=== PATIENT | male | born 1935 | race Caucasian/White ===

== ENCOUNTER 2017-09-20 02:54 | Inpatient (IN) | payer MEDICARE, OTHER ==
[2017-09-20] MEDS ORDERED: Acetaminophen 500 MG TAB ONE (03:18)
[2017-09-20] MEDS ORDERED: Azithromycin 500 MG VIAL ONE (03:32)
[2017-09-20 03:54] LABS: #Eosinphils 0.1 thou/uL (0.0-0.7); #Lymphocytes 0.6 thou/uL (1.20-3.40); #Monocytes 0.6 thou/uL (0.11-0.59); #Neutrophils 6.3 thou/uL (1.40-6.50); %Basophils 0.3 % (0.0-1.0); %Eosinophils 0.7 % (0.0-10.0); %Monocytes 7.4 % (0.0-10.0); %Neutrophils 83.6 % (42.0-75.0); Hemoglobin 13.4 g/dL (14.0-18.0); Mean Corpuscular HGB CONC 33.3 g/dL (32.0-36.0); Mean Corpuscular Hemoglobin 31.7 pg (27.0-31.0); Mean Corpuscular Volume 95.1 fl (80.0-94.0); Mean Platelet Volume 6.2 fL (7.4-10.4); Platelet Count 165 thou/uL (130-400); RBC Distribution Width 12.5 % (11.5-14.5); Red Blood Cell (RBC) Count 4.24 mill/uL (4.70-6.10); White Blood Cell (WBC) Count 7.6 thou/uL (4.8-10.8)
[2017-09-20 03:59] LABS: ALT (SGPT) 17 U/L (8-55); AST (SGOT) 22 U/L (5-34); Albumin 3.9 g/dL (3.4-4.8); Alkaline Phosphatase 84 U/L (40-150); Anion Gap 11 mmol/L (10-20); BUN (Urea Nitrogen) 22 mg/dL (8.4-25.7); Bilirubin, Total 0.5 mg/dL (0.2-1.2); Calc. Creatinine Clearance 0 mL/min (70-130); Calcium 8.8 mg/dL (7.8-10.44); Carbon Dioxide 20 mmol/L (23-31); Chloride 108 mmol/L (98-107); Estimated GFR-MDRD 61; Globulin 3.3 g/dL (2.4-3.5); Glucose 127 mg/dL (83-110); Potassium 3.8 mmol/L (3.5-5.1); Protein, Total 7.2 g/dL (5.8-8.1); Sodium 135 mmol/L (136-145)
[2017-09-20] MEDS ORDERED: Sodium Chloride 0.9% 1,000 ML IV SCH (04:30)
[2017-09-20] MEDS ORDERED: Ondansetron ODT 4 MG TAB SL PRN (04:30)
[2017-09-20] MEDS ORDERED: Ondansetron HCl/PF 4 MG/2 ML Vial IVP PRN (04:30)
[2017-09-20] MEDS ORDERED: Acetaminophen 325 MG TAB PO PRN (04:30)
[2017-09-20 04:46] LABS: Bilirubin Negative (Negative); Blood, Urine Trace (Negative); Clarity CLEAR (Clear); Glucose, Urine (Dipstick) Negative (Negative); Leukocyte Negative (Negative); Nitrite Negative (Negative); Protein, Urine (Dipstick) Trace mg/dL (Neg-Trace); Specific Gravity, Urine 1.018 (1.002-1.036); pH, Urine 7.5 (5.0-9.0)
[2017-09-20 04:49] LABS: Bacteria/HPF 1+ HPF (None Seen); Hyaline Casts/LPF 0-3 HYALINE CAST LPF (0-3 Hyaline); Pathc Cast-AUWi Flag 0.13 (0-2.49); Squamous Epithelial 0-3 HPF (0-3); WBC/HPF 0-3 HPF (0-3)
[2017-09-20 07:34] VITALS: BMI 23.3
--- NOTE | 2017-09-20 08:14 | RAD ---
SINGLE VIEW OF THE CHEST: Comparison: 09-06-16 History: Dyspnea. FINDINGS: Single view of the chest shows an enlarged but stable cardiomediastinal silhouette. Increased interst itial markings are present. There is no evidence of consolidation, mass, pleural effusion. Degenerati ve changes are seen in the spine. IMPRESSION: No evidence of acute cardiopulmonary disease. POS: [facility]
[2017-09-20] MEDS ORDERED: Aspirin/APAP/Caffeine Tab (Excedrin Migraine) PO PRN (09:24)
--- NOTE | 2017-09-20 10:21 | HP ---
CHIEF COMPLAINT: Cough and fever. HISTORY OF PRESENT ILLNESS: This is an 82-year-old male, patient of Dr. Geronimo Felton, who was brought to the emergency room by his daughter due to unresolving upper respiratory symptoms that started becoming worse cough and possible fever. In the emergency room, he was found to have a righ t lower lobe pneumonia. He said his upper respiratory symptoms for about a week or more, but his cou gh just became more persistent and daughter was more concerned. PAST MEDICAL HISTORY: Mild dementia with some short-term memory issues, history of common migraines, and also history of multi-joint osteoarthritis. He has got BPH with lower urinary tract symptoms. He has got urge incontinence, hyperlipidemia, GERD, and glaucoma. PAST SURGICAL HISTORY: He had a tonsillectomy and adenoidectomy as a child, and appendectomy and her niorrhaphy. He also had cataract surgery and retinal surgery. ALLERGIES: CODEINE, PEANUTS, CHOCOLATE, POTATOES, AND DAIRY. CURRENT MEDICATIONS: He has Azopt eye drops 3 drops daily, travoprost drops 1 drop at night, alfuzos in 10 mg daily, Lipitor 40 mg daily, Namenda 10 mg b.i.d., vitamin D3 tablet 1000 mg daily, finasteri de 5 mg daily, Topamax 100 mg daily, gabapentin 300 mg at bedtime, propranolol 120 mg daily, amitript yline 100 mg daily, also uses Imitrex p.r.n. for migraines. FAMILY HISTORY: His father of an MVA at age 57. His mother at age 56, but had an aortic v alve repair and also had had a stroke previously and had a history of migraines. He has a sister wit h an aneurysm that she from. She had diabetes as well. One of his children has a clotti ng disorder of some kind, he was not spelled up specifically. He does not know the specifics. SOCIAL HISTORY: He is , has two daughters and 1 son. He quit smoking more than 30 years ago, and he only smoked about half a pack a day for about 10 years. He has occasional social alcohol use . 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 No illegal drug use or illicit drug use. REVIEW OF SYSTEMS: Positive for headache and low grade temp, some upper respiratory congestion, but no troubles chewing or swallowing. No changes to vision issues. He has a mild nonproductive cough, but no chest pain, no shortness of breath. Denies any nausea, vomiting, or hematemesis. No hemoptys is. Denies any diarrhea or constipation. No changes in bowel or bladder habits. No dysuria or ivan tochezia or hematuria. Denies any paresis or paresthesias. No suicidal or homicidal ideations. No auditory or visual hallucinations. PHYSICAL EXAMINATION: GENERAL: He is currently sitting up and comfortable, looks a little dazed to me that could be some o f his confusion and change in the environment. He is getting ready to eat breakfast, his daughters h elping him. VITAL SIGNS: Temperature 98.7, pulse is 65, respirations 16, sats 94% on room air, blood pressure 14 0/58. HEENT: Normocephalic and atraumatic cranium. Pupils are equal, round, and reactive to light and acc ommodation. Extraocular movements are intact. Both eyes, the conjunctivae were injected consistent with his glaucoma. Denies any ophthalmoplegia. No dysphagia. NECK: No JVD, no bruits, no lymphadenopathy. LUNGS: Show right lower lobe coarse rale, mild wheezes throughout the right side. Left side sounds fairly clear. HEART: S1, S2, with no rubs, murmurs, or gallops. ABDOMEN: Soft, nontender, nondistended. No hepatosplenomegaly. Bowel sounds are hypoactive. GENITOURINARY: Deferred. EXTREMITIES: Good palpable pulses x4. No cyanosis, clubbing, or edema. NEUROLOGIC: He is grossly intact. He is alert and oriented x3. He has fairly poor short-term memor y. Cranial nerves II-XII are equal and symmetrical. There are no motor or sensory deficits. LABORATORY AND X-RAY FINDINGS: White count 7.6, H&H are 13.4 and 40.3 respectively with 165,000 plat elets. Neutrophils at 83 and lymphocytes at 8. His sodium is 135, potassium 3.8, chloride 108, bica rbonate is 20, BUN is 22, creatinine 1.14 with glucose of 127. GFR 61, AST is 22, ALT 17. Chest x-r ay shows hazy mild infiltrate in the right lower lobe. ASSESSMENT AND PLAN: Pneumonia, lobar early. He has gotten 1 dose of Rocephin and Zithromax in the emergency room. We will continue that. We will also add some DuoNebs and maintain his home medicine s.
[2017-09-20] MEDS: Sodium Chloride 0.9% 1,000 ML IV SCH ×2 (10:23→18:40)
[2017-09-20] MEDS ORDERED: Ondansetron ODT 4 MG TAB PO PRN (10:28)
[2017-09-20] MEDS: Alfuzosin 10 MG TABDR...ER PO SCH (14:52)
[2017-09-20] MEDS: Aspirin/APAP/Caffeine Tab (Excedrin Migraine) PO PRN (16:00)
[2017-09-20] MEDS: Brinzolamide 1% Ophth Soln 10 ml Bottle EA EYE SCH ×2 (16:02→20:18)
[2017-09-20] MEDS: Atorvastatin Calcium 40 MG TAB PO SCH (20:16)
[2017-09-20] MEDS: Gabapentin 300 MG CAP PO SCH (20:16)
[2017-09-20] MEDS: Finasteride 5 MG TAB PO SCH (20:17)
[2017-09-20] MEDS: TRAVATAN 0.004% EA EYE SCH (20:17)
[2017-09-20] MEDS ORDERED: [UNRECOGNIZED DRUG - REMARK] FS SCH (21:00)
[2017-09-20] MEDS ORDERED: Amitriptyline HCl 100 MG TAB PO SCH (22:20)
[2017-09-21] MEDS: cefTRIAXone\\ROCEPHIN 1 GM, Syringe 0.4 ML in Sterile Water 9.6 ML SLOW IVP SCH (03:03)
[2017-09-21] MEDS: Azithromycin 500 MG in Sodium Chloride 0.9% 250 ML 250 ML IVPB SCH (03:04)
[2017-09-21 05:17] LABS: #Eosinphils 0.1 thou/uL (0.0-0.7); #Lymphocytes 2.2 thou/uL (1.20-3.40); #Monocytes 1.2 thou/uL (0.11-0.59); #Neutrophils 7.1 thou/uL (1.40-6.50); %Eosinophils 0.6 % (0.0-10.0); %Lymphocytes 21.1 % (21.0-51.0); %Monocytes 10.9 % (0.0-10.0); %Neutrophils 67.4 % (42.0-75.0); Hemoglobin 11.1 g/dL (14.0-18.0); Mean Corpuscular HGB CONC 32.5 g/dL (32.0-36.0); Mean Corpuscular Hemoglobin 31.1 pg (27.0-31.0); Mean Corpuscular Volume 95.6 fl (80.0-94.0); Mean Platelet Volume 6.7 fL (7.4-10.4); Platelet Count 147 thou/uL (130-400); RBC Distribution Width 12.6 % (11.5-14.5); Red Blood Cell (RBC) Count 3.55 mill/uL (4.70-6.10); White Blood Cell (WBC) Count 10.6 thou/uL (4.8-10.8)
[2017-09-21] MEDS: Sodium Chloride 0.9% 1,000 ML IV SCH ×2 (05:41→14:40)
[2017-09-21] MEDS: Brinzolamide 1% Ophth Soln 10 ml Bottle EA EYE SCH ×3 (08:30→20:15)
[2017-09-21] MEDS: Topiramate 100 MG TAB PO SCH (08:32)
[2017-09-21] MEDS: Propranolol HCl LA 60 MG CAP PO SCH (08:33)
[2017-09-21] MEDS: Alfuzosin 10 MG TABDR...ER PO SCH (08:35)
[2017-09-21] MEDS ORDERED: Amitriptyline HCl 100 MG TAB PO SCH ×2 (09:00→21:00)
--- NOTE | 2017-09-21 10:31 | RAD ---
CHEST TWO VIEWS: History: Pneumonia. Comparison: Chest one view, prior day. FINDINGS: Seen best on the lateral radiograph there is a posterior left lower lobe airspace opacity. This is so mewhat faint. No pneumothorax. No effusion. Cardiac silhouette and mediastinal contours are within no rmal limits. IMPRESSION: Faint left lower lobe airspace opacity seen best on lateral radiograph. POS: [facility]
[2017-09-21] MEDS: TRAVATAN 0.004% EA EYE SCH (20:14)
[2017-09-21] MEDS: Finasteride 5 MG TAB PO SCH (20:15)
[2017-09-21] MEDS: Atorvastatin Calcium 40 MG TAB PO SCH (20:15)
[2017-09-21] MEDS: Gabapentin 300 MG CAP PO SCH (20:15)
[2017-09-21] MEDS ORDERED: Amitriptyline HCl 25 MG TAB PO SCH (21:00)
[2017-09-22] MEDS: cefTRIAXone\\ROCEPHIN 1 GM, Syringe 0.4 ML in Sterile Water 9.6 ML SLOW IVP SCH (02:44)
[2017-09-22] MEDS: Azithromycin 500 MG in Sodium Chloride 0.9% 250 ML 250 ML IVPB SCH (02:44)
[2017-09-22] MEDS: Sodium Chloride 0.9% 1,000 ML IV SCH ×2 (02:46→12:07)
[2017-09-22] MEDS: Aspirin/APAP/Caffeine Tab (Excedrin Migraine) PO PRN (08:20)
[2017-09-22] MEDS: Topiramate 100 MG TAB PO SCH (08:20)
[2017-09-22] MEDS: Brinzolamide 1% Ophth Soln 10 ml Bottle EA EYE SCH (08:21)
[2017-09-22] MEDS: Propranolol HCl LA 60 MG CAP PO SCH (08:21)
[2017-09-22] MEDS: Alfuzosin 10 MG TABDR...ER PO SCH (08:21)
[2017-09-22 09:13] VITALS: BP 143/72; TEMP 97.3
--- NOTE | 2017-09-22 18:00 | DIS ---
DATE OF ADMISSION: 09/20/2017 DATE OF DISCHARGE: 09/22/2017 ADMITTING DIAGNOSIS: Right lower lobe pneumonia. DISCHARGE DIAGNOSIS: Right lower lobe pneumonia. HOSPITAL COURSE: The patient is an 82-year-old male, patient of Dr. Geronimo Felton's, who c philipp in with coughing and fever, found to have pneumonia and was admitted for IV antibiotics and nebul izer treatments. Hospital course is essentially uneventful. On day of discharge, he has been afebri le for more than 36 hours. His chest x-ray showed slight resolution of the infiltrate. He is feelin g much better and is ready to go home. Plan is to discharge home on cefdinir 300 mg twice a day for a week and Zithromax 250 mg daily for a week and he will follow up with Dr. Felton sometime early in t he next week. He will call and make that appointment. He will resume all his home meds. His daught er is in the room with him. They have no further questions at this time.
== END 2017-09-22 12:46 | disposition home or self-care (01) | DRG 195 ==
LOC: ERS 02:54 → T4-B 06:44
PROVIDERS: ADMIT Family Medicine; ATTEND Family Medicine
DX: J18.9 Pneumonia, unspecified organism (principal); E78.5 Hyperlipidemia, unspecified; K21.9 Gastro-esophageal reflux disease without esophagitis; H40.9 Unspecified glaucoma; N40.1 Benign prostatic hyperplasia with lower urinary tract symptoms; M19.90 Unspecified osteoarthritis, unspecified site; N39.41 Urge incontinence; Z87.891 Personal history of nicotine dependence
CPT/HCPCS: 36415; 71010; 71020; 80053; 81003; 81015; 83605; 85025; 87804; 94640; 96365; 96367; A4216; J0456; J0696; J7050; J7620

== ENCOUNTER 2018-02-03 10:30 | Inpatient (IN) | payer MEDICARE, OTHER ==
[2018-02-07] MEDS ORDERED: CEFAZOLIN/Water 2 GM/20 ML SYRINGE ONE (06:26)
[2018-02-07] MEDS ORDERED: Midazolam HCl 2 mg/2 ml Vial ONE (06:27)
[2018-02-07] MEDS ORDERED: Lidocaine 1% (PF) 30 ML VIAL ONE (06:27)
[2018-02-07] MEDS ORDERED: Fentanyl 100 MCG/2 ML VIAL ONE ×2 (06:27→10:26)
[2018-02-07] MEDS ORDERED: Promethazine HCl 25 MG/ML VIAL ONE (06:42)
[2018-02-07] MEDS ORDERED: hydrALAZINE 20 MG/ML VIAL ONE (06:43)
[2018-02-07] MEDS ORDERED: Ropivacaine 0.2% 550 ML 550 ML NERVE BLCK SCH (06:51)
[2018-02-07] MEDS ORDERED: Ondansetron HCl/PF 4 MG/2 ML Vial IVP PRN ×2 (06:51→09:33)
[2018-02-07] MEDS ORDERED: traMADol HCl 50 MG TAB PO PRN ×2 (06:51)
[2018-02-07] MEDS ORDERED: Zolpidem Tartrate 5 MG TAB PO PRN (06:51)
[2018-02-07] MEDS ORDERED: Promethazine HCl 25 MG/ML VIAL IM PRN ×2 (06:51→09:33)
[2018-02-07] MEDS ORDERED: Fentanyl 100 MCG/2 ML VIAL IV PRN (06:52)
[2018-02-07] MEDS ORDERED: HYDROcodone/Acetaminophen 7.5/325 mg Tablet PO PRN ×2 (06:54)
[2018-02-07] MEDS ORDERED: Promethazine HCl 25 MG/ML VIAL SLOW IVP PRN (09:33)
[2018-02-07] MEDS ORDERED: Ketorolac Tromethamine 30 MG/ML VIAL ONE ×2 (10:02→11:09)
--- NOTE | 2018-02-07 11:09 | OP ---
DATE OF PROCEDURE: 02/07/2018 PREOPERATIVE DIAGNOSES: 1. Left shoulder osteoarthritis. 2. Biceps tendinosis. POSTOPERATIVE DIAGNOSES: 1. Left shoulder osteoarthritis. 2. Biceps tendinosis. PROCEDURE PERFORMED: 1. Left reverse total shoulder arthroplasty. 2. Biceps tenodesis. STAFF: Salvador Miller M.D. DIRECTOR STARS: Kary Worrell PA-C ANESTHESIA: Zane. The patient received a general intubation with interscalene block. ESTIMATED BLOOD LOSS: 200 mL. TOURNIQUET TIME: None. IMPLANTS: A Tornier 25 mm baseplate, a 25 mm x 36 mm centered glenosphere, a 7B Scend Flex stem with a high offset tray and a 36 x 6 mm poly, 2 locking screws and 2 nonlocking screws, one locking screw inserted in the baseplate. ANTIBIOTICS: She also received Ancef 2 grams, vancomycin 1 gram, TXA 1 gram. COMPLICATIONS: None. HISTORY OF PRESENT ILLNESS: Mr. Reece is a pleasant 82-year-old male who presented to my service marvin ral years ago having left shoulder pain. The patient has been followed with injections and conservat emerson management. I discussed with the patient the risks and benefits of a left reverse shoulder arthr oplasty versus total shoulder arthroplasty with biceps tenodesis. I discussed given the patient's ag e, as well as my concern for potential function of his rotator cuff for potential falls that I would like to elect for reverse shoulder arthroplasty for management of the patient's shoulder osteoarthrit is. I discussed with the patient the risks and benefits of the surgery to include pain, scar, bleedi ng, infection, damage to vital structures, decreased range of motion or strength, nerve injury, isabella nued pain, damage to vital structures, loss of life or limb. The patient understood these risks and benefits and elected to proceed. PROCEDURE NOTE: Time-out was performed designating the patient's left upper extremity as the operati ve site based on site, consents and markings. After completion of timeout, the patient was placed in a beach chair position. His left upper extremity was prepped and draped in sterile fashion. Deltop ectoral interval was made down, found the patient's deltoid and found the cephalic vein, retracted it laterally. We then opened the interval coming down onto the conjoint, took down a centimeter of the pectoralis to expose the conjoint, took an opened the conjoint tendon with a Cobell, found the bicep s. There was what appeared to be the leading edge. It was flattened and thickened and had some bone overgrowth, therefore we took the tenotomy off the tuberosity, took down the subscapularis as well a s the capsule inferiorly to expose the entire shoulder, to get into the rotator interval superiorly, I placed a #5 Ethibond and whipstitch and a W stitch in and out as a holding stitch as well as for ou r repair. We then exposed the entire neck, removed the inferior osteophytes used the opening awl to open up the canal. We cut the head. We then used the open awl to open the canal and broached up to a size 6 reamer. I inferiorlized it, I put on hubcap, did not like the position, inferiorlized a lit tle bit and reamed twice. The reamer skipped off the bone and caused a little small skin tag about 1 cm on the medial aspect of the skin. We then positioned the Bankart in place and exposed the glenoi d with a 360 degree release using cautery on bone to release the entire labrum to expose the patient' s glenoid. After exposure of the glenoid in place, I placed my 25 mm baseplate inferiorly ensuring i t was right on the edge of the bone, drilled a center screw, reamed and then cleaned up the reamer to place the glenosphere. We then placed my baseplate in position, hammered it into place, drilled ant erior and posterior with good fixation and a good locking screw. Inferiorly, I think it was going do wn the scapular spine, I did not like the position of the screw or to make it any larger, I felt I jackson d good firm fixation of my 3-point fixation therefore I elected to leave the screw out. I then place d my glenosphere in place, screwed it and had good firm fixation, I then moved back to the humerus. I actually upsized to 7 implant and kind of cleaned off the reamer again, impacted it down, had my po sition, placed down position to 6 o'clock to help would be more lateralized and a high offset tray, r olled it into place and screwed it down. We popped into place, reduced the hip. We washed out the s houlder. I liked the overall position and alignment. The patient has had some sinus in this conjoin t, but did have still some laxity. The patient had leaned his arm to side in traction, rotation and elevate overhead. I liked the overall position, skin edges as well as the line in the deltopectoral interval. Therefore, I elected to complete my procedure. I put his final implant. I drilled, passe d a #5 Ethibond near the biceps tendon interval which I looped around the tray as I impacted it. The stem was impacted in with the tray, placed the poly in place, reduced the shoulder. We then closed the subscapularis using #5 Ethibonds and some #0s. I did not completely close the rotator interval. I did not want to over tighten the patient's shoulder, but leave the supraspinatus and the infraspin atus in place to allow for still some motion. We tenodesed the biceps with 0 Vicryl with two figure- of-eight stitches, washed the joint, closed the deltopectoral with 0 Vicryl, closed subcu 2-0 and sta ples, used Dermabond glue to close the small skin rent from the reamer. We then placed the patient i n a sling. The patient will be admitted for observation overnight. He did receive vancomycin and Ancef. We ron l start him on tramadol for pain relief, had his pain block. The patient will be followed in-house.
[2018-02-07] MEDS ORDERED: diphenhydrAMINE 50 MG CAP PO PRN (11:35)
[2018-02-07] MEDS ORDERED: Bisacodyl 10 MG SUPP PR PRN (11:35)
[2018-02-07] MEDS ORDERED: Milk Of Magnesia 30 ML UDCUP PO PRN (11:35)
[2018-02-07] MEDS ORDERED: Acetaminophen 325 MG TAB PO PRN (11:35)
[2018-02-07] MEDS ORDERED: Methocarbamol 1 GM/10 ML VIAL SLOW IVP PRN (11:35)
[2018-02-07] MEDS ORDERED: Methocarbamol 500 MG TAB PO PRN (11:35)
[2018-02-07] MEDS ORDERED: Rizatriptan Benzoate 10 MG MLT TAB PO PRN (12:03)
[2018-02-07] MEDS ORDERED: Ondansetron ODT 4 MG TAB PO PRN (12:08)
[2018-02-07] MEDS: Ketorolac Tromethamine 30 MG/ML VIAL IVP SCH ×2 (12:15→18:22)
[2018-02-07] MEDS ORDERED: Famotidine 20 MG TAB PO SCH (12:15)
[2018-02-07] MEDS ORDERED: Ropivacaine 0.5% HCl/PF (150 MG/30 ML VIAL) ONE (13:47)
[2018-02-07] MEDS ORDERED: Ropivacaine 0.2% HCl/PF (40 MG/20 ML VIAL) ONE (13:47)
[2018-02-07] MEDS ORDERED: Dexamethasone 20 MG/5 ML VIAL ONE (14:00)
[2018-02-07] MEDS ORDERED: PHENYLEPHRINE-NS 100 MCG/ML 10 ML SYRINGE ONE (14:00)
[2018-02-07] MEDS ORDERED: PROPOFOL 200 MG/20 ML VIAL ONE (14:00)
[2018-02-07 14:52] VITALS: BMI 24.2
[2018-02-07] MEDS: Aspirin/APAP/Caffeine Tab (Excedrin Migraine) PO PRN (16:16)
[2018-02-07] MEDS: CEFAZOLIN/Water 2 GM/20 ML SYRINGE SLOW IVP SCH ×2 (16:17→21:03)
[2018-02-07] MEDS: Dextrose 5 %-0.45 % NaCl 1,000 ML IV SCH (16:24)
[2018-02-07] MEDS ORDERED: Vancomycin HCl 1 GM in Premix Bag 1 BAG IVPB SCH (18:00)
[2018-02-07] MEDS ORDERED: TRAVATAN Z EA EYE SCH (21:00)
[2018-02-07] MEDS ORDERED: Atorvastatin Calcium 20 MG TAB PO SCH (21:00)
[2018-02-07] MEDS: Famotidine 20 MG TAB PO SCH (21:00)
[2018-02-07] MEDS ORDERED: Gabapentin 300 MG CAP PO SCH (21:00)
[2018-02-07] MEDS ORDERED: RIBOFLAVIN 100 MG PO SCH (21:00)
[2018-02-07] MEDS ORDERED: Topiramate 100 MG TAB PO SCH (21:00)
[2018-02-07] MEDS: Timolol 0.5% Ophth Soln 5 ml Bottle EA EYE SCH (21:05)
[2018-02-07] MEDS: TROSPIUM 20 MG TABLET PO SCH (21:06)
[2018-02-08] MEDS: Ketorolac Tromethamine 30 MG/ML VIAL IVP SCH ×3 (00:57→06:48)
[2018-02-08] MEDS: Dextrose 5 %-0.45 % NaCl 1,000 ML IV SCH (06:47)
[2018-02-08 08:22] VITALS: BP 151/77; TEMP 97.9
[2018-02-08] MEDS: Aspirin/APAP/Caffeine Tab (Excedrin Migraine) PO PRN (08:41)
[2018-02-08] MEDS: TROSPIUM 20 MG TABLET PO SCH (08:41)
[2018-02-08] MEDS: Famotidine 20 MG TAB PO SCH (08:41)
[2018-02-08] MEDS ORDERED: Finasteride 5 MG TAB PO SCH (09:00)
[2018-02-08] MEDS ORDERED: Prevnar 13-Val Conj/PF 0.5 ML SYRINGE IM ONE (09:00)
[2018-02-08] MEDS ORDERED: Propranolol HCl LA 60 MG CAP PO SCH (09:00)
[2018-02-08] MEDS: Timolol 0.5% Ophth Soln 5 ml Bottle EA EYE SCH (10:29)
[2018-02-08] MEDS ORDERED: Aspirin 81 mg Enteric Coated Tablet PO SCH (21:00)
== END 2018-02-08 11:01 | disposition home or self-care (01) | DRG 483 ==
LOC: SJJU 02-07 05:27 → SURG A 02-07 11:08
PROVIDERS: ADMIT Orthopaedic Surgery; ATTEND Orthopaedic Surgery
PROC: 0RRK00Z Replacement of Left Shoulder Joint with Reverse Ball and Socket Synthetic Substitute, Open Approach (ICD-10-PCS; principal; 2018-02-07)
DX: M19.012 Primary osteoarthritis, left shoulder (principal); I50.32 Chronic diastolic (congestive) heart failure; I11.0 Hypertensive heart disease with heart failure; E78.00 Pure hypercholesterolemia, unspecified; K21.9 Gastro-esophageal reflux disease without esophagitis; H40.9 Unspecified glaucoma; Z87.891 Personal history of nicotine dependence; Z88.5 Allergy status to narcotic agent; Z91.010 Allergy to peanuts; Z88.8 Allergy status to other drugs, medicaments and biological substances; Z91.018 Allergy to other foods; Z79.82 Long term (current) use of aspirin; Z79.899 Other long term (current) drug therapy
CPT/HCPCS: A4306; G8978-GP-CJ; G8979-GP-CJ; G8980-GP-CJ; G8987-GO-CJ; G8988-GO-CJ; G8989-GO-CJ; J0360; J1100; J1885; J2001; J2250; J2550; J2704; J2795; J3010; J3370

== ENCOUNTER 2018-02-03 12:49 | Outpatient (CLI) | payer MEDICARE, OTHER ==
[2018-02-03 14:40] LABS: Mean Corpuscular HGB CONC 33.5 g/dL (32.0-36.0); Mean Corpuscular Hemoglobin 30.9 pg (27.0-31.0); Mean Corpuscular Volume 92.3 fl (80.0-94.0); Mean Platelet Volume 6.1 fL (7.4-10.4); Platelet Count 238 thou/uL (130-400); RBC Distribution Width 12.9 % (11.5-14.5); Red Blood Cell (RBC) Count 4.54 mill/uL (4.70-6.10); White Blood Cell (WBC) Count 8.6 thou/uL (4.8-10.8)
[2018-02-03 14:42] LABS: Bilirubin Negative (Negative); Blood, Urine Negative (Negative); Clarity CLEAR (Clear); Glucose, Urine (Dipstick) Negative (Negative); Leukocyte Small (Negative); Nitrite Negative (Negative); Protein, Urine (Dipstick) Negative (Neg-Trace); Specific Gravity, Urine 1.012 (1.002-1.036)
[2018-02-03 14:44] LABS: Bacteria/HPF None Seen HPF (None Seen); Hyaline Casts/LPF 0-3 HYALINE CAST LPF (0-3 Hyaline); RBC/HPF 0-3 HPF (0-3); Squamous Epithelial None Seen HPF (0-3); WBC/HPF 21-50 HPF (0-3)
[2018-02-03 15:04] LABS: Anion Gap 8 mmol/L (10-20); BUN (Urea Nitrogen) 21 mg/dL (8.4-25.7); Calc. Creatinine Clearance 0 mL/min (70-130); Calcium 8.9 mg/dL (7.8-10.44); Carbon Dioxide 26 mmol/L (23-31); Chloride 108 mmol/L (98-107); Estimated GFR-MDRD 64; Glucose 83 mg/dL (83-110); Sodium 138 mmol/L (136-145)
== END 2018-02-03 12:50 | disposition home or self-care (01) ==
LOC: LABBT 12:49
PROVIDERS: ATTEND Orthopaedic Surgery
DX: Z01.812 Encounter for preprocedural laboratory examination (principal); M19.012 Primary osteoarthritis, left shoulder
CPT/HCPCS: 80048; 81001; 85027; 86850; 86900; 86901; 87081

== ENCOUNTER 2019-02-08 08:25 | Outpatient (CLI) | payer MEDICARE, OTHER ==
--- NOTE | 2019-02-08 08:50 | CT ---
CT Brain WO Con History: [R 41.89 cognitive and behavioral changes] Comparison: CT brain August 2016 Findings: No acute hemorrhage or infarct. No midline shift or mass effect. Ventricular size and extra -axial CSF spaces are normal for age. The calvarium is intact. Paranasal sinuses and mastoids are clear. Impression: No acute intracranial abnormality.
== END 2019-02-08 08:26 | disposition home or self-care (01) ==
LOC: BICCT 08:25
DX: R41.89 Other symptoms and signs involving cognitive functions and awareness (principal); R46.89 Other symptoms and signs involving appearance and behavior
CPT/HCPCS: 70450

== ENCOUNTER 2019-10-30 16:07 | Emergency (ER) | payer MEDICARE, OTHER ==
[2019-10-30] MEDS ORDERED: Proparacaine 0.5% Opth 15 ML BOT ONE (17:01)
[2019-10-30] MEDS ORDERED: Fluorescein Opthalmic Strip ONE (17:01)
== END 2019-10-30 18:07 | disposition home or self-care (01) ==
LOC: ERS 16:07
DX: H59.311 Postprocedural hemorrhage of right eye and adnexa following an ophthalmic procedure (principal); S50.312A Abrasion of left elbow, initial encounter; E78.5 Hyperlipidemia, unspecified; G43.909 Migraine, unspecified, not intractable, without status migrainosus; F03.90 Unspecified dementia, unspecified severity, without behavioral disturbance, psychotic disturbance, mood disturbance, and anxiety; G47.00 Insomnia, unspecified; F41.9 Anxiety disorder, unspecified; F32.9 Major depressive disorder, single episode, unspecified; Z79.899 Other long term (current) drug therapy; W19.XXXA Unspecified fall, initial encounter; Y93.01 Activity, walking, marching and hiking
CPT/HCPCS: 99283

== ENCOUNTER 2019-10-31 20:21 | Emergency (ER) | payer MEDICARE, OTHER ==
[2019-10-31 21:26] LABS: #Basophils 0.1 thou/uL (0.0-0.2); #Eosinphils 0.1 thou/uL (0.0-0.7); #Lymphocytes 3.1 thou/uL (1.20-3.40); #Monocytes 0.9 thou/uL (0.11-0.59); #Neutrophils 5.2 thou/uL (1.40-6.50); %Basophils 0.9 % (0.0-1.0); %Eosinophils 1.5 % (0.0-10.0); %Lymphocytes 32.7 % (21.0-51.0); %Monocytes 9.3 % (0.0-10.0); %Neutrophils 55.6 % (42.0-75.0); Hemoglobin 14.5 g/dL (14.0-18.0); Mean Corpuscular HGB CONC 31.5 g/dL (32.0-36.0); Mean Corpuscular Hemoglobin 29.3 pg (27.0-31.0); Mean Platelet Volume 6.7 fL (7.4-10.4); Platelet Count 216 thou/uL (130-400); RBC Distribution Width 13.2 % (11.5-14.5); Red Blood Cell (RBC) Count 4.95 mill/uL (4.70-6.10); White Blood Cell (WBC) Count 9.4 thou/uL (4.8-10.8)
[2019-10-31 21:30] LABS: Bilirubin Negative (Negative); Blood, Urine Negative (Negative); Clarity Clear (Clear); Glucose, Urine (Dipstick) Normal (Negative); Leukocyte Negative Leu/uL (Negative); Nitrite Negative (Negative); Protein, Urine (Dipstick) Negative (Neg-Trace); Urobilinogen Normal mg/dL (Less than 2)
--- NOTE | 2019-10-31 21:36 | RAD ---
ONE VIEW CHEST: 10/31/19 HISTORY: Altered mental status. Glaucoma surgery yesterday. COMPARISON: 09/22/17. FINDINGS: Atherosclerosis of the aorta. There is cardiomegaly. Pulmonary vessels and hilum are normal. Costophr enic angles are clear. Chronic change in the lung parenchyma, without consolidation or mass. No pneum othorax or acute osseous abnormalities. Left humeral prosthesis is noted. IMPRESSION: Atherosclerosis. No acute cardiopulmonary process. POS: [facility]
[2019-10-31] MEDS ORDERED: OLANZapine ODT 5 MG TAB PO SCH (21:45)
[2019-10-31 21:50] LABS: ALT (SGPT) 18 U/L (8-55); AST (SGOT) 34 U/L (5-34); Albumin 4.4 g/dL (3.4-4.8); Alkaline Phosphatase 78 U/L (40-110); Anion Gap 12 mmol/L (10-20); BUN (Urea Nitrogen) 20 mg/dL (8.4-25.7); Bilirubin, Total 0.6 mg/dL (0.2-1.2); Calc. Creatinine Clearance 0 mL/min (70-130); Carbon Dioxide 20 mmol/L (23-31); Chloride 113 mmol/L (98-107); Estimated GFR-MDRD 61; Globulin 2.8 g/dL (2.4-3.5); Glucose 80 mg/dL (83-110); Potassium 3.9 mmol/L (3.5-5.1); Protein, Total 7.2 g/dL (5.8-8.1); Sodium 141 mmol/L (136-145)
--- NOTE | 2019-10-31 22:06 | CT ---
CT Brain WO Con History: Altered mental status Comparison: CT brain February 08, 2019 Findings: Evidence of recent right globe ophthalmologic surgery corresponding with history. Mild atrophy. No acute hemorrhage or infarct. No midline shift or mass effect. Calvarium is intact. Paranasal sinuses and mastoids are clear. Impression: No acute intracranial abnormality.
[2019-11-01] MEDS ORDERED: Lorazepam 2 MG/ML VIAL ONE (00:34)
== END 2019-11-01 01:22 | disposition short-term general hospital (02) ==
LOC: ERS 20:21
DX: R41.82 Altered mental status, unspecified (principal); G43.909 Migraine, unspecified, not intractable, without status migrainosus; F03.90 Unspecified dementia, unspecified severity, without behavioral disturbance, psychotic disturbance, mood disturbance, and anxiety; G47.00 Insomnia, unspecified; F41.9 Anxiety disorder, unspecified; F32.9 Major depressive disorder, single episode, unspecified; E78.5 Hyperlipidemia, unspecified; Z79.899 Other long term (current) drug therapy
CPT/HCPCS: 70450; 71045; 80053; 81003; 83605; 85025; 93005; 96374; J2060

== ENCOUNTER 2019-11-11 00:19 | Emergency (ER) | payer MEDICARE, OTHER ==
[2019-11-11] MEDS ORDERED: Lorazepam 2 MG/ML VIAL ONE (01:24)
--- NOTE | 2019-11-11 07:08 | CT ---
PRELIMINARY REPORT/[facility]/AFTER HOURS PROCEDURE CT HEAD WITHOUT INTRAVENOUS CONTRAST: CLINICAL HISTORY: Patient from [place]. Fall from bed. No LOC. TECHNIQUE: Axial computed tomography images of the head/brain without intravenous contrast. COMPARISON: None provided. FINDINGS: BRAIN: No acute intraparenchymal hemorrhage. No mass lesion. No CT evidence for acute territorial inf arct. No midline shift or extra-axial collection. Diffuse parenchymal atrophy. VENTRICLES: No hydrocephalus. ORBITS: Lentiform shaped hyperdensity along the medial aspect of the right globe. Postsurgical appea marta of the lens. SINUSES AND MASTOIDS: The paranasal sinuses and mastoid air cells are clear. SOFT TISSUES: No significant facial or scalp soft tissue swelling evident. No radiopaque foreign body is seen. BONES: No acute skull fracture. IMPRESSION: 1. No acute intracranial abnormality. 2. Diffuse age-appropriate brain parenchymal atrophy. 3. Lentiform shaped hyperdensity along the medial aspect of the right globe may represent choroidal d etachment. Correlate with surgical history. ELECTRONICALLY SIGNED BY: Austin Henning DO Nov 11, 2019 12:57:19 AM [employer] O[employer]ATOR This report is intended for review by the ordering physician only, in accordance of law. If you recei ve this report in error, please call [facility] at [phone]. FINAL REPORT EMERGENT AFTER HOURS STUDY CT BRAIN WITHOUT CONTRAST: FINDINGS: I agree with the findings and impression given in the preliminary report, per the [facility] ph ysician. IMPRESSION: No evidence of acute intracranial abnormality. CODE QA
== END 2019-11-11 01:43 ==
LOC: ERS 00:19
DX: S09.90XA Unspecified injury of head, initial encounter (principal); S80.211A Abrasion, right knee, initial encounter; E78.5 Hyperlipidemia, unspecified; G43.909 Migraine, unspecified, not intractable, without status migrainosus; F03.90 Unspecified dementia, unspecified severity, without behavioral disturbance, psychotic disturbance, mood disturbance, and anxiety; G47.00 Insomnia, unspecified; F41.9 Anxiety disorder, unspecified; F32.9 Major depressive disorder, single episode, unspecified; Z79.899 Other long term (current) drug therapy; W06.XXXA Fall from bed, initial encounter; Y92.129 Unspecified place in nursing home as the place of occurrence of the external cause
CPT/HCPCS: 70450; 96372; J2060

== ENCOUNTER 2020-04-10 07:38 | Outpatient (CLI) | payer MEDICARE, OTHER ==
--- NOTE | 2020-04-10 08:52 | MRI ---
MRI Lumbar Spine WO Con History: Lumbar radiculopathy. Leg pain Comparison: None. Findings: Multiple sequences are degraded by motion artifact. Aortic contour is nonaneurysmal. Bilateral renal cysts. No retroperitoneal periaortic adenopathy. No marrow infiltrative process. There is narrowing of the interspinous space throughout the lumbar spine with cortical sclerosis and early subcortical cysts. The conus medullaris terminates near the mid L1 vertebral body. Modic type I endplate changes at L1/L2. Levels are as follows: L1/L2: Moderate degenerative disc space height loss and desiccation. Moderate hypertrophic facet arth rosis. Large circumferential disc osteophyte complex. Ligamentum flavum hypertrophy. Spinal canal is narrowed to approximately 3 mm. There is crowding of the adjacent nerve roots. Moderate to severe left and moderate right neural foraminal narrowing with abutment of both traversing and left exiting nerve roots. L2/L3: Fusion of the disc space. Circumferential osteophyte, large. Moderate to severe hypertrophic f acet arthrosis. Bilateral neural foraminal narrowing with abutment of the exiting nerve roots. Mildly ligament of flavum hypertrophy. Spinal canal measures approximately 9 mm. L3/L4: Severe degenerative disc space height loss with large circumferential disc osteophyte complex. Moderate hypertrophic facet arthrosis. Moderate ligamentum flavum hypertrophy. The spinal canal is narrowed to approximately 5 mm. Moderate to severe bilateral neural foraminal narrowing. L4/L5: Severe degenerative disc space height loss and circumferential disc osteophyte complex, large. Mild effacement of the ventral CSF space. No significant spinal canal narrowing. Moderate to severe bilateral neural foraminal narrowing with abutment of both exiting and traversing nerve roots. L5/S1: Moderate degenerative disc space height loss is circumferential disc osteophyte complex, moder ate. Moderate hypertrophic facet arthrosis. Moderate to severe right and moderate left neural foraminal narrowing with abutment of the right exiting and traversing nerve roots and left traversing nerve root. Impression: Multilevel high-grade spondylosis as described with neural foraminal and spinal canal mireille rowing. Spinal canal narrowing is greatest at L1/L2 to approximately 3 mm with crowding of the nerve roots.
== END 2020-04-10 07:39 | disposition home or self-care (01) ==
LOC: BICMRI 07:38
PROVIDERS: ATTEND Orthopaedic Surgery
DX: M47.26 Other spondylosis with radiculopathy, lumbar region (principal); M48.061 Spinal stenosis, lumbar region without neurogenic claudication
CPT/HCPCS: 72148

== ENCOUNTER 2020-06-04 18:20 | Emergency (ER) | payer MEDICARE, OTHER ==
[2020-06-04] MEDS ORDERED: Lidocaine 1% (PF) 30 ML VIAL ONE (18:49)
--- NOTE | 2020-06-04 19:33 | RAD ---
Radiograph pelvis one view: HISTORY: 85-year-old male with acute traumatic pelvic pain due to fall FINDINGS: Dynamic compression screw fixating a nonacute, displaced intertrochanteric fracture of the left proxi mal femur. No acute fracture identified, although the large volume of colonic gas and colonic stool overlying the upper sacrum could obscure a fracture. No dislocation. Pelvic ring appears to be grossl y intact. IMPRESSION: 1. No acute fracture identified. 2. Dynamic compression screw fixating a nonacute left proximal femoral intertrochanteric fracture.
--- NOTE | 2020-06-04 19:34 | RAD ---
Radiograph left elbow 4 views: HISTORY: 85-year-old male with acute traumatic left elbow pain due to fall FINDINGS: No displaced fracture identified. The diffuse osteopenia could obscure a nondisplaced fracture. No hi gh-grade DJD. No dislocation. IMPRESSION: No fracture identified
--- NOTE | 2020-06-04 19:35 | RAD ---
RADIOGRAPH CHEST 1 VIEW: DATE: 06/04/2020 HISTORY: 85-year-old male status post acute chest trauma from fall FINDINGS: There are no airspace densities, pulmonary edema, pneumothorax, or cardiomegaly. The lateral costophr enic angles are sharp. IMPRESSION: No acute cardiopulmonary findings.
--- NOTE | 2020-06-04 19:36 | RAD ---
Radiograph left knee 4 views: HISTORY: 85-year-old male with acute traumatic left knee pain due to fall FINDINGS: Osteopenia. No dislocation. No fracture identified. Mild DJD medial compartment. IMPRESSION: No acute fracture identified
--- NOTE | 2020-06-04 19:37 | RAD ---
Radiograph left forearm 2 views: HISTORY: 85-year-old male with acute traumatic forearm pain FINDINGS: Diffuse osteopenia. No fracture of radius or ulna identified. Soft tissue swelling of ulnar side of p roximal half of forearm. IMPRESSION: 1. Soft tissue enlargement of proximal forearm. In the setting of trauma, this could represent a soft tissue hematoma. 2. No fracture of radius or ulna identified.
--- NOTE | 2020-06-04 19:39 | CT ---
CT OF THE BRAIN WITHOUT CONTRAST; 06/04/29 INDICATION: 85-year-old male status post fall and history of Alzheimer's dementia. COMPARISON: Prior exam dated 11/11/19. FINDINGS: There is mild generalized cerebral and cerebellar atrophy. There is mild chronic small vessel white m atter ischemic change. No acute infarct, hemorrhage, or hydrocephalus is present. Mastoid air cell an d paranasal sinuses are clear. Skull is intact. IMPRESSION: No acute intracranial abnormality. POS: [facility]
[2020-06-04] MEDS ORDERED: Acetaminophen 325 MG TAB ONE (19:57)
[2020-06-04] MEDS ORDERED: Boostrix 0.5 ML VIAL ONE ×2 (19:57→20:09)
[2020-06-04] MEDS ORDERED: CEFAZOLIN 1 GM VIAL ONE (19:57)
[2020-06-04] MEDS ORDERED: Sterile Water 10 ML ONE (20:01)
== END 2020-06-04 20:38 | disposition home or self-care (01) ==
LOC: ERS 18:20
DX: S51.012A Laceration without foreign body of left elbow, initial encounter (principal); S51.812A Laceration without foreign body of left forearm, initial encounter; S00.93XA Contusion of unspecified part of head, initial encounter; E78.5 Hyperlipidemia, unspecified; G43.909 Migraine, unspecified, not intractable, without status migrainosus; F03.90 Unspecified dementia, unspecified severity, without behavioral disturbance, psychotic disturbance, mood disturbance, and anxiety; F41.9 Anxiety disorder, unspecified; F32.9 Major depressive disorder, single episode, unspecified; Z87.891 Personal history of nicotine dependence; W18.30XA Fall on same level, unspecified, initial encounter
CPT/HCPCS: 12002; 70450; 71045; 72170; 90471; 90715; 96372; J0690; J2001

== ENCOUNTER 2020-06-11 12:08 | Emergency (ER) | payer MEDICARE, OTHER ==
[2020-06-11] MEDS ORDERED: Bacitracin 1 PK ONE (13:26)
== END 2020-06-11 13:36 | disposition home or self-care (01) ==
LOC: ERS 12:08
DX: S51.802D Unspecified open wound of left forearm, subsequent encounter (principal); E78.5 Hyperlipidemia, unspecified; G43.909 Migraine, unspecified, not intractable, without status migrainosus; F41.9 Anxiety disorder, unspecified; F32.9 Major depressive disorder, single episode, unspecified; Z87.891 Personal history of nicotine dependence; Z79.899 Other long term (current) drug therapy
CPT/HCPCS: 99282

== ENCOUNTER 2021-08-11 21:27 | Emergency (ER) | payer MEDICARE, OTHER ==
[~2021-08-11 21:27] MED LIST: Iopamidol-370 76% 500 ML 1 ML ONE
[2021-08-11 23:04] LABS: Hemoglobin 12.1 g/dL (14.0-18.0); Mean Corpuscular HGB CONC 33.5 g/dL (32.0-36.0); Mean Corpuscular Hemoglobin 31.1 pg (27.0-31.0); Mean Platelet Volume 6.8 fL (7.4-10.4); Platelet Count 211 thou/uL (130-400); RBC Distribution Width 12.4 % (11.5-14.5); White Blood Cell (WBC) Count 14.2 thou/uL (4.8-10.8)
[2021-08-11 23:11] LABS: Bilirubin Negative (Negative); Blood, Urine Negative (Negative); Clarity Clear (Clear); Glucose, Urine (Dipstick) Normal (Negative); Ketone, Urine Negative (Negative); Leukocyte Negative Leu/uL (Negative); Nitrite Negative (Negative); Protein, Urine (Dipstick) 20 mg/dL (Neg-Trace); Specific Gravity, Urine 1.018 (1.002-1.036); Urobilinogen Normal mg/dL (Less than 2)
[2021-08-11 23:38] LABS: ALT (SGPT) 11 U/L (8-55); AST (SGOT) 18 U/L (5-34); Albumin 3.5 g/dL (3.4-4.8); Alkaline Phosphatase 81 U/L (40-110); Anion Gap 14 mmol/L (10-20); BUN (Urea Nitrogen) 68 mg/dL (8.4-25.7); Bilirubin, Total 0.6 mg/dL (0.2-1.2); Calc. Creatinine Clearance 0 mL/min (70-130); Calcium 8.2 mg/dL (7.8-10.44); Carbon Dioxide 23 mmol/L (23-31); Chloride 104 mmol/L (98-107); Globulin 2.7 g/dL (2.4-3.5); Glucose 117 mg/dL (83-110); Potassium 3.9 mmol/L (3.5-5.1); Protein, Total 6.2 g/dL (5.8-8.1); Sodium 137 mmol/L (136-145)
[2021-08-11 23:42] LABS: Band 1 % (5-11); Hypochromia SLIGHT = 6-15 cells (100X) (0-5/hpf); Lymphocytes 14 % (21-51); MDiff Complete? YES; Monocytes 19 % (0-10); Neutrophil 66 % (42-75); Platelet Morphology Comment Appears Adequate
[2021-08-12] MEDS ORDERED: Amoxicillin/Potassium Clav 875 MG TAB ONE (01:39)
== END 2021-08-12 01:50 | disposition home or self-care (01) ==
LOC: ERS 21:27
DX: K52.9 Noninfective gastroenteritis and colitis, unspecified (principal); E78.5 Hyperlipidemia, unspecified; I10 Essential (primary) hypertension; G47.00 Insomnia, unspecified; Z87.891 Personal history of nicotine dependence; Z79.899 Other long term (current) drug therapy
CPT/HCPCS: 36415; 51701; 71045; 74177; 80053; 81003; 82274; 84484; 85025; 93005; Q9967

== ENCOUNTER 2022-04-13 11:38 | Outpatient (CLI) | payer MEDICARE ==
[2022-04-13] MEDS ORDERED: Iopamidol-370 76% 500 ML 1 ML ONE (11:47)
== END 2022-04-13 11:39 | disposition home or self-care (01) ==
LOC: BICCT 11:38
PROVIDERS: ATTEND Urology
DX: R31.29 Other microscopic hematuria (principal); N28.1 Cyst of kidney, acquired; N32.89 Other specified disorders of bladder; K76.89 Other specified diseases of liver; K59.00 Constipation, unspecified; K40.90 Unilateral inguinal hernia, without obstruction or gangrene, not specified as recurrent
CPT/HCPCS: 74178; 82565; Q9967

== ENCOUNTER 2023-01-21 23:43 | Inpatient (IN) | payer MEDICARE ==
[~2023-01-21 23:43] MED LIST changes: -Iopamidol-370 76% 500 ML 1 ML ONE; +Iopamidol-370 76% 500 ML MDV (1 ML CHARGE) ONE
[2023-01-22 00:20] LABS: #Basophils 0.1 thou/uL (0.0-0.2); #Monocytes 0.9 thou/uL (0.11-0.59); #Neutrophils 9.9 thou/uL (1.40-6.50); %Basophils 0.5 % (0.0-1.0); %Eosinophils 0.2 % (0.0-10.0); %Neutrophils 83.3 % (42.0-75.0); Hemoglobin 13.5 g/dL (14.0-18.0); Mean Corpuscular HGB CONC 32.8 g/dL (32.0-36.0); Mean Corpuscular Hemoglobin 30.3 pg (27.0-31.0); Mean Corpuscular Volume 92.4 fl (78.0-98.0); Mean Platelet Volume 6.6 fL (7.4-10.4); Platelet Count 202 10x3/uL (130-400); RBC Distribution Width 14.1 % (11.5-14.5); Red Blood Cell (RBC) Count 4.45 mill/uL (4.70-6.10); White Blood Cell (WBC) Count 11.8 10x3/uL (4.8-10.8)
[2023-01-22 00:40] LABS: Anion Gap 14 mmol/L (10-20); Carbon Dioxide 25 mmol/L (23-31); Chloride 106 mmol/L (98-107); Potassium 3.3 mmol/L (3.5-5.1); Sodium 142 mmol/L (136-145)
[2023-01-22 00:41] LABS: ALT (SGPT) 775 U/L (8-55); AST (SGOT) 473 U/L (5-34); Albumin 3.9 g/dL (3.4-4.8); Alkaline Phosphatase 289 U/L (40-110); BUN (Urea Nitrogen) 26 mg/dL (8.4-25.7); Bilirubin, Total 2.9 mg/dL (0.2-1.2); Calc. Creatinine Clearance 0 mL/min (70-130); Estimated GFR 60; Globulin 3.9 g/dL (2.4-3.5); Glucose 116 mg/dL (83-110); Lipase 24 U/L (8-78); Protein, Total 7.8 g/dL (5.8-8.1)
[2023-01-22 01:02] LABS: CKMB 0.6 ng/mL (0-6.6)
[2023-01-22 01:27] LABS: Bacteria/HPF None Seen HPF (None Seen); Bilirubin 1+ (Negative); Blood, Urine Trace (Negative); Clarity Clear (Clear); Glucose, Urine (Dipstick) Normal (Negative); Ketone, Urine Negative (Negative); Leukocyte Negative Leu/uL (Negative); Nitrite Negative (Negative); Protein, Urine (Dipstick) 30 mg/dL (Neg-Trace); Specific Gravity, Urine 1.022 (1.002-1.036); Squamous Epithelial 0-3 HPF (0-3); WBC/HPF 0-3 HPF (0-3)
[2023-01-22] MEDS ORDERED: Aspirin Chewable 81 MG TAB ONE (01:27)
[2023-01-22] MEDS ORDERED: Piperacillin/Tazobactam 4.5 GM VIAL ONE (02:02)
[2023-01-22 05:59] LABS: Troponin I 0.034 ng/mL (< 0.028)
[2023-01-22 07:45] LABS: Troponin I 0.036 ng/mL (< 0.028)
[2023-01-22] MEDS ORDERED: Potassium Chloride 20 MEQ in Lactated Ringer's 1,000 ML IV SCH (07:45)
[2023-01-22 08:16] LABS: #Lymphocytes 1.5 thou/uL (1.20-3.40); #Monocytes 1.4 thou/uL (0.11-0.59); #Neutrophils 9.7 thou/uL (1.40-6.50); %Eosinophils 0.3 % (0.0-10.0); %Lymphocytes 12.2 % (21.0-51.0); %Monocytes 10.9 % (0.0-10.0); %Neutrophils 76.6 % (42.0-75.0); Hemoglobin 12.5 g/dL (14.0-18.0); Mean Corpuscular HGB CONC 32.8 g/dL (32.0-36.0); Mean Corpuscular Hemoglobin 30.4 pg (27.0-31.0); Mean Corpuscular Volume 92.7 fl (78.0-98.0); Mean Platelet Volume 6.8 fL (7.4-10.4); Platelet Count 176 10x3/uL (130-400); RBC Distribution Width 14.1 % (11.5-14.5); Red Blood Cell (RBC) Count 4.12 mill/uL (4.70-6.10); White Blood Cell (WBC) Count 12.6 10x3/uL (4.8-10.8)
[2023-01-22 08:51] LABS: ALT (SGPT) 563 U/L (8-55); AST (SGOT) 286 U/L (5-34); Albumin 3.2 g/dL (3.4-4.8); Alkaline Phosphatase 235 U/L (40-110); Anion Gap 17 mmol/L (10-20); BUN (Urea Nitrogen) 21 mg/dL (8.4-25.7); Bilirubin, Total 2.3 mg/dL (0.2-1.2); Calc. Creatinine Clearance 51 mL/min (70-130); Calcium 8.5 mg/dL (7.8-10.44); Carbon Dioxide 17 mmol/L (23-31); Chloride 111 mmol/L (98-107); Estimated GFR 63; Glucose 93 mg/dL (83-110); Potassium 4.2 mmol/L (3.5-5.1); Protein, Total 7.2 g/dL (5.8-8.1); Sodium 141 mmol/L (136-145)
[2023-01-22] MEDS ORDERED: fentaNYL 50 mcg/mL 1 mL Vial ONE (10:17)
[2023-01-22] MEDS ORDERED: Succinylcholine Chloride 100 MG/5 ML SYRINGE FS ONE (10:35)
[2023-01-22] MEDS ORDERED: Ondansetron PF 4 MG/2 ML Vial ONE (10:35)
[2023-01-22] MEDS ORDERED: ePHEDrine Sulfate 50 MG/10 ML VIAL ONE (10:35)
[2023-01-22] MEDS ORDERED: PHENYLEPHRINE-NS 100 MCG/ML 10 ML SYRINGE ONE (10:35)
[2023-01-22] MEDS ORDERED: PROPOFOL 200 MG/20 ML VIAL ONE (10:35)
[2023-01-22] MEDS ORDERED: Lidocaine 1% PF 5 ML VIAL ONE (10:35)
[2023-01-22] MEDS ORDERED: Dexamethasone 20 MG/5 ML VIAL ONE (10:35)
[2023-01-22] MEDS ORDERED: Polyethylene Glycol 3350 17 GM Packet PO SCH (12:30)
[2023-01-22 13:23] LABS: Iron Binding Capacity, Total 210 mcg/dL (261-462)
[2023-01-22 13:24] LABS: Iron 19 ug/dL (65-175)
[2023-01-22 13:43] LABS: HBSAg Index 0.29 S/CO (0-0.99); Hep A IgM AB Non-Reactive S/CO (NonReactive); Hep A IgM S/CO 0.52 S/CO (0-0.79); Hep B Surf Ag Non-Reactive S/CO (NonReactive); Hep C IgG Ab Non-Reactive S/CO (NonReactive); Hep C Index 0.17 S/CO (0-0.79); Hepatitis B Core IgM Abs Non-Reactive S/CO (NonReactive)
[2023-01-22] MEDS: Lactated Ringer's 1,000 ML IV SCH (13:43)
[2023-01-22] MEDS: Cefepime 2 GM in Sodium Chloride 0.9% 100 ML IVPB SCH (22:09)
[2023-01-23 08:46] LABS: #Lymphocytes 1.4 thou/uL (1.20-3.40); #Monocytes 1.2 thou/uL (0.11-0.59); #Neutrophils 9.6 thou/uL (1.40-6.50); %Lymphocytes 11.6 % (21.0-51.0); %Monocytes 9.8 % (0.0-10.0); %Neutrophils 78.5 % (42.0-75.0); Hemoglobin 11.6 g/dL (14.0-18.0); Mean Corpuscular HGB CONC 32.2 g/dL (32.0-36.0); Mean Corpuscular Hemoglobin 29.8 pg (27.0-31.0); Mean Corpuscular Volume 92.7 fl (78.0-98.0); Mean Platelet Volume 7.1 fL (7.4-10.4); Platelet Count 198 10x3/uL (130-400); RBC Distribution Width 13.8 % (11.5-14.5); Red Blood Cell (RBC) Count 3.87 mill/uL (4.70-6.10); White Blood Cell (WBC) Count 12.3 10x3/uL (4.8-10.8)
[2023-01-23] MEDS: Polyethylene Glycol 3350 17 GM Packet PO SCH (09:09)
[2023-01-23] MEDS: Cefepime 2 GM in Sodium Chloride 0.9% 100 ML IVPB SCH ×2 (09:09→21:11)
[2023-01-23] MEDS: Lactated Ringer's 1,000 ML IV SCH (09:10)
[2023-01-23 09:28] LABS: ALT (SGPT) 310 U/L (8-55); AST (SGOT) 81 U/L (5-34); Albumin 3.1 g/dL (3.4-4.8); Alkaline Phosphatase 171 U/L (40-110); Anion Gap 13 mmol/L (10-20); BUN (Urea Nitrogen) 17 mg/dL (8.4-25.7); Bilirubin, Total 1.1 mg/dL (0.2-1.2); Calc. Creatinine Clearance 69 mL/min (70-130); Calcium 8.3 mg/dL (7.8-10.44); Carbon Dioxide 22 mmol/L (23-31); Chloride 109 mmol/L (98-107); Estimated GFR 84; Glucose 89 mg/dL (83-110); Potassium 2.7 mmol/L (3.5-5.1); Protein, Total 6.1 g/dL (5.8-8.1); Sodium 141 mmol/L (136-145)
[2023-01-23] MEDS: Tamsulosin HCl 0.4 MG CAP PO SCH (21:11)
[2023-01-23] MEDS: Trospium 20 MG TAB PO SCH (21:11)
[2023-01-24] MEDS: Lactated Ringer's 1,000 ML IV SCH ×2 (04:31→05:36)
[2023-01-24 06:22] LABS: #Lymphocytes 1.6 thou/uL (1.20-3.40); #Monocytes 0.8 thou/uL (0.11-0.59); #Neutrophils 5.2 thou/uL (1.40-6.50); %Basophils 0.1 % (0.0-1.0); %Eosinophils 0.5 % (0.0-10.0); %Lymphocytes 20.7 % (21.0-51.0); %Monocytes 10.9 % (0.0-10.0); %Neutrophils 67.8 % (42.0-75.0); Hemoglobin 11.4 g/dL (14.0-18.0); Mean Corpuscular HGB CONC 33.2 g/dL (32.0-36.0); Mean Corpuscular Hemoglobin 30.3 pg (27.0-31.0); Mean Corpuscular Volume 91.2 fl (78.0-98.0); Mean Platelet Volume 7.1 fL (7.4-10.4); Platelet Count 175 10x3/uL (130-400); RBC Distribution Width 13.5 % (11.5-14.5); Red Blood Cell (RBC) Count 3.78 mill/uL (4.70-6.10); White Blood Cell (WBC) Count 7.7 10x3/uL (4.8-10.8)
[2023-01-24 06:46] LABS: ALT (SGPT) 194 U/L (8-55); AST (SGOT) 37 U/L (5-34); Albumin 2.9 g/dL (3.4-4.8); Alkaline Phosphatase 137 U/L (40-110); Anion Gap 13 mmol/L (10-20); BUN (Urea Nitrogen) 15 mg/dL (8.4-25.7); Bilirubin, Total 0.9 mg/dL (0.2-1.2); Calc. Creatinine Clearance 73 mL/min (70-130); Carbon Dioxide 21 mmol/L (23-31); Chloride 107 mmol/L (98-107); Estimated GFR 85; Globulin 2.9 g/dL (2.4-3.5); Glucose 87 mg/dL (83-110); Potassium 2.8 mmol/L (3.5-5.1); Protein, Total 5.8 g/dL (5.8-8.1); Sodium 138 mmol/L (136-145)
[2023-01-24] MEDS: Cefepime 2 GM in Sodium Chloride 0.9% 100 ML IVPB SCH ×2 (08:10→22:17)
[2023-01-24] MEDS: Polyethylene Glycol 3350 17 GM Packet PO SCH (08:12)
[2023-01-24] MEDS: Trospium 20 MG TAB PO SCH ×2 (08:43→22:16)
[2023-01-24] MEDS: cloNIDine 0.1 MG TAB PO SCH (08:46)
[2023-01-24] MEDS: Propranolol HCl LA 60 MG CAP PO SCH (08:47)
[2023-01-24] MEDS: Potassium Chloride 20 MEQ in Premix Bag 1 BAG IVPB SCH ×2 (09:02→10:51)
[2023-01-24] MEDS ORDERED: Magnesium 2 GM/50 ML(in water) 2 GM in Premix Bag 1 BAG IVPB SCH (11:00)
[2023-01-24] MEDS ORDERED: Mag-Al 1200 mg/1200 mg/30 ML UDCUP PO PRN (12:27)
[2023-01-24 12:52] LABS: Phosphorus 2.2 mg/dL (2.3-4.7)
[2023-01-24 12:54] LABS: Magnesium 1.8 mg/dL (1.6-2.6)
[2023-01-24 13:49] LABS: EliA Vaculitis New Method **** NEW METHOD ****; Mitochondrial Ab 1.2 U/mL (<4 Negative)
[2023-01-24] MEDS ORDERED: Potassium Phosphate 30 MMOL in Sodium Chloride 0.9% 250 ML 250 ML IVPB SCH ×2 (16:00→18:30)
[2023-01-24] MEDS ORDERED: Potassium Chloride 20 MEQ in Premix Bag 1 BAG IVPB SCH (18:30)
[2023-01-24 18:37] LABS: Anion Gap 11 mmol/L (10-20); BUN (Urea Nitrogen) 14 mg/dL (8.4-25.7); Calc. Creatinine Clearance 74 mL/min (70-130); Carbon Dioxide 24 mmol/L (23-31); Chloride 106 mmol/L (98-107); Estimated GFR 86; Glucose 125 mg/dL (83-110); Magnesium 2.2 mg/dL (1.6-2.6); Phosphorus 2.8 mg/dL (2.3-4.7); Potassium 3.2 mmol/L (3.5-5.1); Sodium 138 mmol/L (136-145)
[2023-01-24] MEDS: Mirtazapine 15 MG TAB PO SCH (22:16)
[2023-01-24] MEDS: Tamsulosin HCl 0.4 MG CAP PO SCH (22:16)
[2023-01-25] MEDS: Lactated Ringer's 1,000 ML IV SCH ×2 (02:37→04:10)
[2023-01-25 06:22] LABS: Anion Gap 10 mmol/L (10-20); BUN (Urea Nitrogen) 11 mg/dL (8.4-25.7); Calc. Creatinine Clearance 72 mL/min (70-130); Calcium 7.7 mg/dL (7.8-10.44); Carbon Dioxide 25 mmol/L (23-31); Chloride 108 mmol/L (98-107); Estimated GFR 85; Glucose 95 mg/dL (83-110); Magnesium 1.9 mg/dL (1.6-2.6); Phosphorus 3.1 mg/dL (2.3-4.7); Sodium 140 mmol/L (136-145)
[2023-01-25] MEDS ORDERED: Magnesium 2 GM/50 ML(in water) 2 GM in Premix Bag 1 BAG IVPB SCH (09:00)
[2023-01-25] MEDS: Propranolol HCl LA 60 MG CAP PO SCH (09:17)
[2023-01-25] MEDS: Polyethylene Glycol 3350 17 GM Packet PO SCH (09:17)
[2023-01-25] MEDS: Cefepime 2 GM in Sodium Chloride 0.9% 100 ML IVPB SCH ×2 (09:17→20:15)
[2023-01-25] MEDS: Trospium 20 MG TAB PO SCH ×2 (09:17→20:15)
[2023-01-25] MEDS: cloNIDine 0.1 MG TAB PO SCH (09:17)
[2023-01-25] MEDS: Neostigmine 0.5 MG in Syringe 0 ML SC SCH ×2 (12:16→18:13)
[2023-01-25] MEDS: Potassium Chloride 20 MEQ in Premix Bag 1 BAG IVPB SCH ×2 (12:16→13:28)
[2023-01-25] MEDS ORDERED: Potassium Chloride 20 MEQ in Premix Bag 1 BAG IVPB SCH ×2 (13:30→15:30)
[2023-01-25] MEDS: Tamsulosin HCl 0.4 MG CAP PO SCH (20:15)
[2023-01-25] MEDS: Mirtazapine 15 MG TAB PO SCH (20:15)
[2023-01-26] MEDS: Neostigmine 0.5 MG in Syringe 0 ML SC SCH ×2 (00:38→05:50)
[2023-01-26] MEDS: Lactated Ringer's 1,000 ML IV SCH ×2 (01:43→15:14)
[2023-01-26 06:24] LABS: #Eosinphils 0.1 thou/uL (0.0-0.7); #Monocytes 0.9 thou/uL (0.11-0.59); %Eosinophils 1.2 % (0.0-10.0); %Lymphocytes 25.4 % (21.0-51.0); %Monocytes 10.7 % (0.0-10.0); %Neutrophils 62.7 % (42.0-75.0); Hemoglobin 10.2 g/dL (14.0-18.0); Mean Corpuscular HGB CONC 33.8 g/dL (32.0-36.0); Mean Corpuscular Hemoglobin 30.6 pg (27.0-31.0); Mean Corpuscular Volume 90.4 fl (78.0-98.0); Mean Platelet Volume 6.9 fL (7.4-10.4); Platelet Count 174 10x3/uL (130-400); RBC Distribution Width 13.3 % (11.5-14.5); Red Blood Cell (RBC) Count 3.35 mill/uL (4.70-6.10)
[2023-01-26 06:34] LABS: Anion Gap 11 mmol/L (10-20); BUN (Urea Nitrogen) 10 mg/dL (8.4-25.7); Calc. Creatinine Clearance 72 mL/min (70-130); Calcium 7.9 mg/dL (7.8-10.44); Carbon Dioxide 25 mmol/L (23-31); Chloride 107 mmol/L (98-107); Estimated GFR 85; Glucose 88 mg/dL (83-110); Sodium 140 mmol/L (136-145)
[2023-01-26] MEDS: cloNIDine 0.1 MG TAB PO SCH (08:55)
[2023-01-26] MEDS: Polyethylene Glycol 3350 17 GM Packet PO SCH (08:56)
[2023-01-26] MEDS ORDERED: Magnesium 2 GM/50 ML(in water) 2 GM in Premix Bag 1 BAG IVPB SCH (09:00)
[2023-01-26 09:03] LABS: Magnesium 2.2 mg/dL (1.6-2.6)
[2023-01-26] MEDS: Trospium 20 MG TAB PO SCH ×2 (09:04→20:04)
[2023-01-26] MEDS: Propranolol HCl LA 60 MG CAP PO SCH (09:04)
[2023-01-26 11:44] LABS: Phosphorus 2.3 mg/dL (2.3-4.7)
[2023-01-26] MEDS: Potassium Chloride 20 MEQ in Premix Bag 1 BAG IVPB SCH ×4 (11:54→19:24)
[2023-01-26] MEDS: NEOSTIGMINE SC SCH ×3 (12:01→23:53)
[2023-01-26] MEDS ORDERED: Acetaminophen 325 MG TAB PO PRN (16:27)
[2023-01-26] MEDS: Tamsulosin HCl 0.4 MG CAP PO SCH (20:04)
[2023-01-26] MEDS: Mirtazapine 15 MG TAB PO SCH (20:04)
[2023-01-26] MEDS ORDERED: Furosemide 20 MG/2 ML VIAL SLOW IVP SCH (23:45)
[2023-01-27] MEDS ORDERED: Furosemide 20 MG/2 ML VIAL SLOW IVP SCH (00:15)
[2023-01-27] MEDS: NEOSTIGMINE SC SCH ×2 (06:02→12:30)
[2023-01-27 06:07] LABS: #Eosinphils 0.1 thou/uL (0.0-0.7); #Lymphocytes 2.1 thou/uL (1.20-3.40); #Monocytes 1.1 thou/uL (0.11-0.59); #Neutrophils 5.9 thou/uL (1.40-6.50); %Basophils 0.2 % (0.0-1.0); %Eosinophils 0.7 % (0.0-10.0); %Lymphocytes 22.5 % (21.0-51.0); %Monocytes 11.9 % (0.0-10.0); %Neutrophils 64.6 % (42.0-75.0); Hemoglobin 11.9 g/dL (14.0-18.0); Mean Corpuscular HGB CONC 33.1 g/dL (32.0-36.0); Mean Corpuscular Hemoglobin 29.8 pg (27.0-31.0); Mean Corpuscular Volume 89.9 fl (78.0-98.0); Platelet Count 212 10x3/uL (130-400); RBC Distribution Width 13.5 % (11.5-14.5); Red Blood Cell (RBC) Count 3.99 mill/uL (4.70-6.10); White Blood Cell (WBC) Count 9.1 10x3/uL (4.8-10.8)
[2023-01-27 06:27] LABS: Anion Gap 15 mmol/L (10-20); BUN (Urea Nitrogen) 8 mg/dL (8.4-25.7); Calc. Creatinine Clearance 71 mL/min (70-130); Calcium 8.4 mg/dL (7.8-10.44); Carbon Dioxide 27 mmol/L (23-31); Chloride 101 mmol/L (98-107); Estimated GFR 85; Glucose 92 mg/dL (83-110); Magnesium 2.1 mg/dL (1.6-2.6); Phosphorus 2.2 mg/dL (2.3-4.7); Potassium 3.1 mmol/L (3.5-5.1); Sodium 140 mmol/L (136-145)
[2023-01-27] MEDS ORDERED: Potassium Phosphate 30 MMOL in Sodium Chloride 0.9% 250 ML 250 ML IVPB SCH (09:00)
[2023-01-27] MEDS: Polyethylene Glycol 3350 17 GM Packet PO SCH (09:26)
[2023-01-27] MEDS: Trospium 20 MG TAB PO SCH ×2 (09:26→21:34)
[2023-01-27] MEDS: cloNIDine 0.1 MG TAB PO SCH (09:26)
[2023-01-27] MEDS: Propranolol HCl LA 60 MG CAP PO SCH (09:26)
[2023-01-27] MEDS ORDERED: Iopamidol 370 76% 100 ML VIAL ONE (10:18)
[2023-01-27 12:29] LABS: INR-International Normal Ratio 1.1; Prothrombin Time 14.6 sec (12.0-14.7)
[2023-01-27 12:30] LABS: PTT 50.8 sec (22.9-36.1)
[2023-01-27] MEDS ORDERED: Fentanyl 250 MCG/5 ML VIAL ONE (13:45)
[2023-01-27] MEDS ORDERED: Lidocaine 1% PF 5 ML VIAL ONE (14:43)
[2023-01-27] MEDS ORDERED: NEOSTIGMINE 3 MG/3 ML SYR 3 MG/3 ML SYRINGE ONE (14:43)
[2023-01-27] MEDS ORDERED: Rocuronium Bromide 10 MG/ML (10ML VIAL) ONE (14:43)
[2023-01-27] MEDS ORDERED: Ondansetron PF 4 MG/2 ML Vial ONE (14:43)
[2023-01-27] MEDS ORDERED: Dexamethasone 20 MG/5 ML VIAL ONE (14:43)
[2023-01-27] MEDS ORDERED: PROPOFOL 200 MG/20 ML VIAL ONE (14:43)
[2023-01-27] MEDS ORDERED: PHENYLEPHRINE-NS 100 MCG/ML 10 ML SYRINGE ONE (14:43)
[2023-01-27] MEDS ORDERED: Glycopyrrolate 0.2 MG/ML 5 ML SYRINGE ONE (14:43)
[2023-01-27] MEDS ORDERED: Piperacillin/Tazobactam 3.375 GM VIAL ONE (14:48)
[2023-01-27] MEDS ORDERED: Sodium Chloride 0.9% 100 ML ONE (14:50)
[2023-01-27] MEDS ORDERED: Ondansetron HCl/PF 4 MG/2 ML Vial IVP PRN (16:46)
[2023-01-27] MEDS ORDERED: Morphine 2 MG/ML VIAL SLOW IVP PRN (16:49)
[2023-01-27] MEDS ORDERED: hydrALAZINE 20 MG/ML VIAL ONE (17:17)
[2023-01-27] MEDS ORDERED: fentaNYL 50 mcg/mL 1 mL Vial ONE (17:43)
[2023-01-27] MEDS ORDERED: hydrALAZINE 20 MG/ML VIAL SLOW IVP PRN (20:28)
[2023-01-27] MEDS: Acetaminophen 325 MG TAB PO SCH (21:24)
[2023-01-27] MEDS: Labetalol HCl 100 MG/20 ML VIAL SLOW IVP PRN (21:29)
[2023-01-27] MEDS: Mirtazapine 15 MG TAB PO SCH (21:35)
[2023-01-27] MEDS: Tamsulosin HCl 0.4 MG CAP PO SCH (21:35)
[2023-01-28] MEDS: Acetaminophen 325 MG TAB PO SCH ×4 (00:26→16:41)
[2023-01-28 06:02] LABS: #Lymphocytes 1.5 thou/uL (1.20-3.40); #Monocytes 1.5 thou/uL (0.11-0.59); #Neutrophils 8.4 thou/uL (1.40-6.50); %Basophils 0.1 % (0.0-1.0); %Eosinophils 0.2 % (0.0-10.0); %Lymphocytes 12.7 % (21.0-51.0); %Monocytes 13.3 % (0.0-10.0); %Neutrophils 73.7 % (42.0-75.0); Hemoglobin 12.4 g/dL (14.0-18.0); Mean Corpuscular HGB CONC 30.1 g/dL (32.0-36.0); Mean Corpuscular Hemoglobin 27.5 pg (27.0-31.0); Mean Corpuscular Volume 91.3 fl (78.0-98.0); Mean Platelet Volume 6.4 fL (7.4-10.4); Platelet Count 303 10x3/uL (130-400); RBC Distribution Width 13.8 % (11.5-14.5); Red Blood Cell (RBC) Count 4.51 mill/uL (4.70-6.10); White Blood Cell (WBC) Count 11.4 10x3/uL (4.8-10.8)
[2023-01-28 06:21] LABS: Phosphorus 2.6 mg/dL (2.3-4.7)
[2023-01-28 06:25] LABS: ALT (SGPT) 67 U/L (8-55); AST (SGOT) 21 U/L (5-34); Albumin 3.3 g/dL (3.4-4.8); Alkaline Phosphatase 114 U/L (40-110); Anion Gap 16 mmol/L (10-20); BUN (Urea Nitrogen) 13 mg/dL (8.4-25.7); Bilirubin, Total 0.7 mg/dL (0.2-1.2); CRP (Inflammatory) 11.22 mg/dL (= or < 0.5); Calc. Creatinine Clearance 58 mL/min (70-130); Calcium 8.5 mg/dL (7.8-10.44); Carbon Dioxide 24 mmol/L (23-31); Chloride 103 mmol/L (98-107); Estimated GFR 82; Globulin 3.5 g/dL (2.4-3.5); Glucose 106 mg/dL (83-110); Magnesium 1.9 mg/dL (1.6-2.6); Protein, Total 6.8 g/dL (5.8-8.1); Sodium 139 mmol/L (136-145)
[2023-01-28] MEDS: Famotidine/PF 20 mg/2ml Vial SLOW IVP SCH ×2 (09:37→21:17)
[2023-01-28] MEDS: cloNIDine 0.1 MG TAB PO SCH (09:37)
[2023-01-28] MEDS: Trospium 20 MG TAB PO SCH ×2 (09:38→21:17)
[2023-01-28] MEDS: Polyethylene Glycol 3350 17 GM Packet PO SCH (09:38)
[2023-01-28] MEDS: Propranolol HCl LA 60 MG CAP PO SCH (09:38)
[2023-01-28] MEDS: Tamsulosin HCl 0.4 MG CAP PO SCH (21:13)
[2023-01-28] MEDS: Mirtazapine 15 MG TAB PO SCH (21:16)
[2023-01-29] MEDS: Acetaminophen 325 MG TAB PO SCH ×5 (00:22→18:01)
[2023-01-29] MEDS: cloNIDine 0.1 MG TAB PO SCH (08:19)
[2023-01-29] MEDS: Propranolol HCl LA 60 MG CAP PO SCH (08:19)
[2023-01-29] MEDS: Famotidine/PF 20 mg/2ml Vial SLOW IVP SCH ×2 (08:19→20:29)
[2023-01-29] MEDS: Trospium 20 MG TAB PO SCH ×2 (08:19→20:29)
[2023-01-29] MEDS: Polyethylene Glycol 3350 17 GM Packet PO SCH (08:19)
[2023-01-29 11:04] LABS: #Lymphocytes 2.5 thou/uL (1.20-3.40); #Monocytes 1.3 thou/uL (0.11-0.59); %Basophils 0.3 % (0.0-1.0); %Eosinophils 0.3 % (0.0-10.0); %Monocytes 12.3 % (0.0-10.0); %Neutrophils 64.1 % (42.0-75.0); Hemoglobin 11.8 g/dL (14.0-18.0); Mean Corpuscular HGB CONC 32.8 g/dL (32.0-36.0); Mean Corpuscular Hemoglobin 30.2 pg (27.0-31.0); Mean Corpuscular Volume 92.1 fl (78.0-98.0); Mean Platelet Volume 6.5 fL (7.4-10.4); Platelet Count 257 10x3/uL (130-400); RBC Distribution Width 13.6 % (11.5-14.5); White Blood Cell (WBC) Count 10.9 10x3/uL (4.8-10.8)
[2023-01-29 11:25] LABS: Anion Gap 15 mmol/L (10-20); BUN (Urea Nitrogen) 12 mg/dL (8.4-25.7); Calc. Creatinine Clearance 54 mL/min (70-130); Calcium 8.3 mg/dL (7.8-10.44); Carbon Dioxide 23 mmol/L (23-31); Chloride 105 mmol/L (98-107); Estimated GFR 77; Glucose 142 mg/dL (83-110); Phosphorus 2.4 mg/dL (2.3-4.7); Sodium 139 mmol/L (136-145)
[2023-01-29] MEDS ORDERED: Furosemide 40 MG/4 ML VIAL SLOW IVP SCH (14:30)
[2023-01-29 17:08] VITALS: BMI 22.4
[2023-01-29] MEDS: Tamsulosin HCl 0.4 MG CAP PO SCH (20:29)
[2023-01-29] MEDS: Mirtazapine 15 MG TAB PO SCH (20:29)
[2023-01-30] MEDS: Acetaminophen 325 MG TAB PO SCH ×4 (01:27→17:36)
[2023-01-30 05:26] LABS: #Eosinphils 0.1 thou/uL (0.0-0.7); #Lymphocytes 2.7 thou/uL (1.20-3.40); #Monocytes 1.1 thou/uL (0.11-0.59); #Neutrophils 6.7 thou/uL (1.40-6.50); %Basophils 0.5 % (0.0-1.0); %Eosinophils 1.1 % (0.0-10.0); %Lymphocytes 25.2 % (21.0-51.0); %Monocytes 10.6 % (0.0-10.0); %Neutrophils 62.7 % (42.0-75.0); Hemoglobin 11.7 g/dL (14.0-18.0); Mean Corpuscular HGB CONC 32.2 g/dL (32.0-36.0); Mean Corpuscular Hemoglobin 29.4 pg (27.0-31.0); Mean Corpuscular Volume 91.4 fl (78.0-98.0); Mean Platelet Volume 6.6 fL (7.4-10.4); Platelet Count 282 10x3/uL (130-400); RBC Distribution Width 13.5 % (11.5-14.5); Red Blood Cell (RBC) Count 3.98 mill/uL (4.70-6.10); White Blood Cell (WBC) Count 10.6 10x3/uL (4.8-10.8)
[2023-01-30 05:51] LABS: Anion Gap 12 mmol/L (10-20); BUN (Urea Nitrogen) 11 mg/dL (8.4-25.7); Calc. Creatinine Clearance 51 mL/min (70-130); Calcium 8.3 mg/dL (7.8-10.44); Carbon Dioxide 29 mmol/L (23-31); Chloride 101 mmol/L (98-107); Estimated GFR 73; Glucose 106 mg/dL (83-110); Magnesium 1.8 mg/dL (1.6-2.6); Potassium 3.7 mmol/L (3.5-5.1); Sodium 138 mmol/L (136-145)
[2023-01-30] MEDS ORDERED: Magnesium 2 GM/50 ML(in water) 2 GM in Premix Bag 1 BAG IVPB SCH (08:00)
[2023-01-30] MEDS ORDERED: MD-Gastroview 120 ML BOT ONE (08:57)
[2023-01-30] MEDS: Polyethylene Glycol 3350 17 GM Packet PO SCH (09:53)
[2023-01-30] MEDS: Trospium 20 MG TAB PO SCH ×2 (09:53→21:00)
[2023-01-30] MEDS: cloNIDine 0.1 MG TAB PO SCH (09:53)
[2023-01-30] MEDS: Famotidine/PF 20 mg/2ml Vial SLOW IVP SCH ×2 (09:55→20:46)
[2023-01-30] MEDS: Propranolol HCl LA 60 MG CAP PO SCH (10:05)
[2023-01-30] MEDS: NEOSTIGMINE SC SCH ×2 (16:02→20:47)
[2023-01-30] MEDS: ADMIXTURE FEE SC SCH ×2 (16:02→20:47)
[2023-01-30] MEDS ORDERED: Lactated Ringer's 500 ML IV SCH (19:15)
[2023-01-30] MEDS: Tamsulosin HCl 0.4 MG CAP PO SCH (20:59)
[2023-01-30] MEDS: Mirtazapine 15 MG TAB PO SCH (20:59)
[2023-01-31] MEDS: Acetaminophen 325 MG TAB PO SCH ×5 (00:22→20:13)
[2023-01-31] MEDS: ADMIXTURE FEE SC SCH ×4 (03:31→20:13)
[2023-01-31] MEDS: NEOSTIGMINE SC SCH ×4 (03:31→20:13)
[2023-01-31 05:31] LABS: #Eosinphils 0.1 thou/uL (0.0-0.7); #Lymphocytes 2.5 thou/uL (1.20-3.40); #Monocytes 1.3 thou/uL (0.11-0.59); #Neutrophils 11.4 thou/uL (1.40-6.50); %Basophils 0.1 % (0.0-1.0); %Eosinophils 0.6 % (0.0-10.0); %Lymphocytes 16.5 % (21.0-51.0); %Monocytes 8.5 % (0.0-10.0); %Neutrophils 74.4 % (42.0-75.0); Hemoglobin 13.2 g/dL (14.0-18.0); Mean Corpuscular HGB CONC 32.6 g/dL (32.0-36.0); Mean Corpuscular Hemoglobin 29.8 pg (27.0-31.0); Mean Corpuscular Volume 91.4 fl (78.0-98.0); Mean Platelet Volume 6.5 fL (7.4-10.4); Platelet Count 381 10x3/uL (130-400); RBC Distribution Width 13.4 % (11.5-14.5); Red Blood Cell (RBC) Count 4.44 mill/uL (4.70-6.10); White Blood Cell (WBC) Count 15.3 10x3/uL (4.8-10.8)
[2023-01-31 05:43] LABS: Anion Gap 16 mmol/L (10-20); BUN (Urea Nitrogen) 18 mg/dL (8.4-25.7); Calc. Creatinine Clearance 41 mL/min (70-130); Calcium 8.4 mg/dL (7.8-10.44); Carbon Dioxide 29 mmol/L (23-31); Chloride 100 mmol/L (98-107); Estimated GFR 56; Glucose 117 mg/dL (83-110); Sodium 141 mmol/L (136-145)
[2023-01-31] MEDS: Sodium Chloride 0.9% 1,000 ML IV SCH ×2 (08:48→18:35)
[2023-01-31] MEDS: Famotidine/PF 20 mg/2ml Vial SLOW IVP SCH (08:49)
[2023-01-31] MEDS: cloNIDine 0.1 MG TAB PO SCH (09:50)
[2023-01-31] MEDS: Polyethylene Glycol 3350 17 GM Packet PO SCH (09:51)
[2023-01-31] MEDS: Propranolol HCl LA 60 MG CAP PO SCH (09:51)
[2023-01-31] MEDS: Trospium 20 MG TAB PO SCH ×2 (09:51→20:13)
[2023-01-31 18:34] LABS: Bilirubin Negative (Negative); Blood, Urine Negative (Negative); Clarity Turbid (Clear); Glucose, Urine (Dipstick) Normal (Negative); Ketone, Urine 10 mg/dL (Negative); Leukocyte Negative Leu/uL (Negative); Nitrite Negative (Negative); Protein, Urine (Dipstick) 50 mg/dL (Neg-Trace); RBC/HPF 0-3 HPF (0-3); Specific Gravity, Urine 1.038 (1.002-1.036); Squamous Epithelial 0-3 HPF (0-3); Urobilinogen 3 mg/dL (Less than 2); WBC/HPF 0-3 HPF (0-3); pH, Urine 5.5 (5.0-9.0)
[2023-01-31 18:35] LABS: Bacteria/HPF 1+ HPF (None Seen)
[2023-01-31] MEDS: Tamsulosin HCl 0.4 MG CAP PO SCH (20:13)
[2023-01-31] MEDS: Mirtazapine 15 MG TAB PO SCH (20:13)
[2023-02-01] MEDS: NEOSTIGMINE SC SCH ×2 (04:36→09:17)
[2023-02-01] MEDS: ADMIXTURE FEE SC SCH ×2 (04:36→09:17)
[2023-02-01] MEDS: Acetaminophen 325 MG TAB PO SCH ×4 (05:09→23:31)
[2023-02-01 05:33] LABS: #Eosinphils 0.2 thou/uL (0.0-0.7); #Neutrophils 7.1 thou/uL (1.40-6.50); %Basophils 0.2 % (0.0-1.0); %Eosinophils 1.9 % (0.0-10.0); %Lymphocytes 24.6 % (21.0-51.0); %Monocytes 9.1 % (0.0-10.0); %Neutrophils 63.5 % (42.0-75.0); Mean Corpuscular HGB CONC 31.3 g/dL (32.0-36.0); Mean Corpuscular Hemoglobin 28.4 pg (27.0-31.0); Mean Platelet Volume 8.7 fL (7.4-10.4); Platelet Count 298 10x3/uL (130-400); RBC Distribution Width 14.3 % (11.5-14.5); Red Blood Cell (RBC) Count 3.87 mill/uL (4.70-6.10); White Blood Cell (WBC) Count 11.2 10x3/uL (4.8-10.8)
[2023-02-01 05:58] LABS: Anion Gap 13 mmol/L (10-20); BUN (Urea Nitrogen) 24 mg/dL (8.4-25.7); Calc. Creatinine Clearance 42 mL/min (70-130); Calcium 7.9 mg/dL (7.8-10.44); Carbon Dioxide 28 mmol/L (23-31); Chloride 107 mmol/L (98-107); Estimated GFR 58; Glucose 86 mg/dL (83-110); Magnesium 2.3 mg/dL (1.6-2.6); Phosphorus 3.3 mg/dL (2.3-4.7); Potassium 3.9 mmol/L (3.5-5.1); Sodium 144 mmol/L (136-145)
[2023-02-01] MEDS: Sodium Chloride 0.9% 1,000 ML IV SCH ×2 (06:14→09:35)
[2023-02-01] MEDS: Polyethylene Glycol 3350 17 GM Packet PO SCH (08:24)
[2023-02-01] MEDS ORDERED: Famotidine/PF 20 mg/2ml Vial SLOW IVP SCH (09:00)
[2023-02-01] MEDS: Labetalol HCl 100 MG/20 ML VIAL SLOW IVP PRN (09:18)
[2023-02-01] MEDS: Propranolol HCl LA 60 MG CAP PO SCH (09:19)
[2023-02-01] MEDS: Trospium 20 MG TAB PO SCH ×2 (09:19→22:07)
[2023-02-01] MEDS: cloNIDine 0.1 MG TAB PO SCH (09:19)
[2023-02-01] MEDS ORDERED: cloNIDine 0.1 MG TAB PO SCH (09:30)
[2023-02-01] MEDS: Tamsulosin HCl 0.4 MG CAP PO SCH (22:06)
[2023-02-01] MEDS: Mirtazapine 15 MG TAB PO SCH (22:06)
[2023-02-02] MEDS: Acetaminophen 325 MG TAB PO SCH ×3 (05:09→17:48)
[2023-02-02] MEDS: Sodium Chloride 0.9% 1,000 ML IV SCH ×2 (05:18→18:01)
[2023-02-02 06:01] LABS: #Eosinphils 0.1 thou/uL (0.0-0.7); #Monocytes 1.3 thou/uL (0.11-0.59); #Neutrophils 8.8 thou/uL (1.40-6.50); %Basophils 0.2 % (0.0-1.0); %Lymphocytes 16.9 % (21.0-51.0); %Monocytes 10.2 % (0.0-10.0); %Neutrophils 71.1 % (42.0-75.0); Hemoglobin 11.1 g/dL (14.0-18.0); Mean Corpuscular HGB CONC 30.2 g/dL (32.0-36.0); Mean Corpuscular Hemoglobin 28.8 pg (27.0-31.0); Mean Platelet Volume 9.1 fL (7.4-10.4); Platelet Count 291 10x3/uL (130-400); RBC Distribution Width 14.3 % (11.5-14.5); Red Blood Cell (RBC) Count 3.85 mill/uL (4.70-6.10); White Blood Cell (WBC) Count 12.3 10x3/uL (4.8-10.8)
[2023-02-02 06:11] LABS: Mean Corpuscular Volume 95.3 fl (78.0-98.0)
[2023-02-02 06:25] LABS: Anion Gap 13 mmol/L (10-20); BUN (Urea Nitrogen) 15 mg/dL (8.4-25.7); Calc. Creatinine Clearance 58 mL/min (70-130); Calcium 7.8 mg/dL (7.8-10.44); Carbon Dioxide 22 mmol/L (23-31); Chloride 107 mmol/L (98-107); Estimated GFR 82; Glucose 97 mg/dL (83-110); Potassium 3.9 mmol/L (3.5-5.1); Sodium 138 mmol/L (136-145)
[2023-02-02] MEDS ORDERED: cloNIDine 0.1 MG TAB PO SCH (09:30)
[2023-02-02] MEDS: Polyethylene Glycol 3350 17 GM Packet PO SCH (10:10)
[2023-02-02] MEDS: Propranolol HCl LA 60 MG CAP PO SCH (10:10)
[2023-02-02] MEDS: Trospium 20 MG TAB PO SCH ×2 (10:10→20:54)
[2023-02-02] MEDS: cloNIDine 0.1 MG TAB PO SCH (10:56)
[2023-02-02] MEDS: Mirtazapine 15 MG TAB PO SCH (20:54)
[2023-02-02] MEDS: Tamsulosin HCl 0.4 MG CAP PO SCH (20:54)
[2023-02-03] MEDS: Acetaminophen 325 MG TAB PO SCH ×4 (00:59→21:48)
[2023-02-03 05:22] LABS: #Monocytes 2.6 thou/uL (0.11-0.59); #Neutrophils 19.5 thou/uL (1.40-6.50); %Basophils 0.1 % (0.0-1.0); %Eosinophils 0.2 % (0.0-10.0); %Lymphocytes 7.9 % (21.0-51.0); %Monocytes 10.6 % (0.0-10.0); %Neutrophils 80.3 % (42.0-75.0); Hemoglobin 11.5 g/dL (14.0-18.0); Mean Corpuscular HGB CONC 31.2 g/dL (32.0-36.0); Mean Corpuscular Hemoglobin 27.6 pg (27.0-31.0); Mean Platelet Volume 8.9 fL (7.4-10.4); Platelet Count 386 10x3/uL (130-400); RBC Distribution Width 14.3 % (11.5-14.5); Red Blood Cell (RBC) Count 4.16 mill/uL (4.70-6.10); White Blood Cell (WBC) Count 24.3 10x3/uL (4.8-10.8)
[2023-02-03 05:45] LABS: Anion Gap 12 mmol/L (10-20); BUN (Urea Nitrogen) 17 mg/dL (8.4-25.7); Calc. Creatinine Clearance 50 mL/min (70-130); Calcium 7.9 mg/dL (7.8-10.44); Carbon Dioxide 22 mmol/L (23-31); Chloride 107 mmol/L (98-107); Estimated GFR 72; Glucose 130 mg/dL (83-110); Potassium 3.9 mmol/L (3.5-5.1); Sodium 137 mmol/L (136-145)
[2023-02-03 05:48] LABS: Mean Corpuscular Volume 88.7 fl (78.0-98.0)
[2023-02-03 07:19] LABS: Bacteria/HPF None Seen HPF (None Seen); Bilirubin Negative (Negative); Blood, Urine Negative (Negative); CAUTI Indications for Culture Alt mental st,lethar; Clarity Clear (Clear); Glucose, Urine (Dipstick) Normal (Negative); Ketone, Urine Trace mg/dL (Negative); Leukocyte Negative Leu/uL (Negative); Nitrite Negative (Negative); Protein, Urine (Dipstick) 30 mg/dL (Neg-Trace); RBC/HPF 0-3 HPF (0-3); Specific Gravity, Urine 1.024 (1.002-1.036); Squamous Epithelial None Seen HPF (0-3); WBC/HPF 0-3 HPF (0-3)
[2023-02-03 08:39] LABS: Urine Culture Reflex No No
[2023-02-03] MEDS ORDERED: Iopamidol 370 76% 100 ML VIAL ONE (10:20)
[2023-02-03 11:44] LABS: ALT (SGPT) 13 U/L (8-55); AST (SGOT) 12 U/L (5-34); Albumin 2.9 g/dL (3.4-4.8); Alkaline Phosphatase 78 U/L (40-110); Bilirubin, Direct 0.4 mg/dL (0.1-0.3); Bilirubin, Total 0.6 mg/dL (0.2-1.2); Protein, Total 5.9 g/dL (5.8-8.1)
[2023-02-03] MEDS: cloNIDine 0.1 MG TAB PO SCH (11:49)
[2023-02-03] MEDS: Propranolol HCl LA 60 MG CAP PO SCH (11:49)
[2023-02-03] MEDS: Trospium 20 MG TAB PO SCH ×2 (11:50→21:48)
[2023-02-03] MEDS: Metamucil PACK PO SCH ×3 (11:50→21:49)
[2023-02-03] MEDS: Polyethylene Glycol 3350 17 GM Packet PO SCH (11:52)
[2023-02-03] MEDS: Sodium Chloride 0.9% 1,000 ML IV SCH (17:44)
[2023-02-03] MEDS: Tamsulosin HCl 0.4 MG CAP PO SCH (21:48)
[2023-02-03] MEDS: Mirtazapine 15 MG TAB PO SCH (21:48)
[2023-02-04] MEDS ORDERED: Acetaminophen 325 MG TAB PO SCH (01:30)
[2023-02-04 01:48] LABS: #Eosinphils 0.1 thou/uL (0.0-0.7); #Monocytes 2.4 thou/uL (0.11-0.59); #Neutrophils 16.8 thou/uL (1.40-6.50); %Basophils 0.1 % (0.0-1.0); %Eosinophils 0.2 % (0.0-10.0); %Monocytes 11.1 % (0.0-10.0); %Neutrophils 77.3 % (42.0-75.0); Hemoglobin 10.2 g/dL (14.0-18.0); Mean Corpuscular HGB CONC 31.5 g/dL (32.0-36.0); Mean Corpuscular Hemoglobin 27.8 pg (27.0-31.0); Mean Corpuscular Volume 88.3 fl (78.0-98.0); Mean Platelet Volume 8.8 fL (7.4-10.4); Platelet Count 342 10x3/uL (130-400); RBC Distribution Width 14.5 % (11.5-14.5); Red Blood Cell (RBC) Count 3.67 mill/uL (4.70-6.10); White Blood Cell (WBC) Count 21.8 10x3/uL (4.8-10.8)
[2023-02-04 02:08] LABS: ALT (SGPT) 12 U/L (8-55); AST (SGOT) 11 U/L (5-34); Albumin 2.6 g/dL (3.4-4.8); Alkaline Phosphatase 72 U/L (40-110); Anion Gap 11 mmol/L (10-20); BUN (Urea Nitrogen) 23 mg/dL (8.4-25.7); Bilirubin, Total 0.5 mg/dL (0.2-1.2); Calc. Creatinine Clearance 39 mL/min (70-130); Calcium 7.8 mg/dL (7.8-10.44); Carbon Dioxide 23 mmol/L (23-31); Chloride 108 mmol/L (98-107); Estimated GFR 53; Globulin 3.1 g/dL (2.4-3.5); Glucose 113 mg/dL (83-110); Potassium 3.8 mmol/L (3.5-5.1); Protein, Total 5.7 g/dL (5.8-8.1); Sodium 138 mmol/L (136-145)
[2023-02-04] MEDS ORDERED: Ibuprofen 200 MG TAB PO SCH (03:00)
[2023-02-04] MEDS: Sodium Chloride 0.9% 1,000 ML IV SCH ×2 (03:21→17:51)
[2023-02-04] MEDS: Acetaminophen 325 MG TAB PO SCH ×5 (05:54→23:55)
[2023-02-04] MEDS: cloNIDine 0.1 MG TAB PO SCH (09:07)
[2023-02-04] MEDS: Trospium 20 MG TAB PO SCH ×2 (09:13→20:16)
[2023-02-04] MEDS: Propranolol HCl LA 60 MG CAP PO SCH (09:13)
[2023-02-04] MEDS: Metamucil PACK PO SCH (09:13)
[2023-02-04] MEDS: Polyethylene Glycol 3350 17 GM Packet PO SCH (09:14)
[2023-02-04] MEDS: Mirtazapine 15 MG TAB PO SCH (20:16)
[2023-02-04] MEDS: Tamsulosin HCl 0.4 MG CAP PO SCH (20:16)
[2023-02-05] MEDS: Acetaminophen 325 MG TAB PO SCH ×5 (00:17→23:04)
[2023-02-05] MEDS: Sodium Chloride 0.9% 1,000 ML IV SCH (00:17)
[2023-02-05] MEDS: cloNIDine 0.1 MG TAB PO SCH (09:09)
[2023-02-05] MEDS: Trospium 20 MG TAB PO SCH ×2 (09:09→20:29)
[2023-02-05] MEDS: Polyethylene Glycol 3350 17 GM Packet PO SCH (09:10)
[2023-02-05] MEDS: Propranolol HCl LA 60 MG CAP PO SCH (09:12)
[2023-02-05] MEDS: Tamsulosin HCl 0.4 MG CAP PO SCH (20:29)
[2023-02-05] MEDS: Mirtazapine 15 MG TAB PO SCH (20:29)
[2023-02-06] MEDS: Acetaminophen 325 MG TAB PO SCH ×4 (05:18→23:54)
[2023-02-06 06:07] LABS: #Eosinphils 0.1 thou/uL (0.0-0.7); #Monocytes 0.8 thou/uL (0.11-0.59); #Neutrophils 6.3 thou/uL (1.40-6.50); %Basophils 0.1 % (0.0-1.0); %Eosinophils 1.3 % (0.0-10.0); %Lymphocytes 22.5 % (21.0-51.0); %Monocytes 8.7 % (0.0-10.0); %Neutrophils 66.4 % (42.0-75.0); Hemoglobin 9.6 g/dL (14.0-18.0); Mean Corpuscular HGB CONC 30.9 g/dL (32.0-36.0); Mean Corpuscular Hemoglobin 28.3 pg (27.0-31.0); Mean Corpuscular Volume 91.7 fl (78.0-98.0); Mean Platelet Volume 8.6 fL (7.4-10.4); Platelet Count 316 10x3/uL (130-400); RBC Distribution Width 13.9 % (11.5-14.5); Red Blood Cell (RBC) Count 3.39 mill/uL (4.70-6.10); White Blood Cell (WBC) Count 9.4 10x3/uL (4.8-10.8)
[2023-02-06] MEDS: cloNIDine 0.1 MG TAB PO SCH (09:32)
[2023-02-06] MEDS: Propranolol HCl LA 60 MG CAP PO SCH (09:32)
[2023-02-06] MEDS: Polyethylene Glycol 3350 17 GM Packet PO SCH (09:32)
[2023-02-06] MEDS: Trospium 20 MG TAB PO SCH ×2 (09:32→20:01)
[2023-02-06] MEDS: Sodium Chloride 0.9% 1,000 ML IV SCH (09:48)
[2023-02-06] MEDS: Labetalol HCl 100 MG/20 ML VIAL SLOW IVP PRN ×2 (19:58→23:54)
[2023-02-06] MEDS: Mirtazapine 15 MG TAB PO SCH (20:01)
[2023-02-06] MEDS: Tamsulosin HCl 0.4 MG CAP PO SCH (20:01)
[2023-02-07] MEDS: Sodium Chloride 0.9% 1,000 ML IV SCH (05:53)
[2023-02-07] MEDS: Acetaminophen 325 MG TAB PO SCH (05:57)
[2023-02-07 08:02] VITALS: BP 166/76; TEMP 97.7
[2023-02-07] MEDS: cloNIDine 0.1 MG TAB PO SCH (08:43)
[2023-02-07] MEDS: Propranolol HCl LA 60 MG CAP PO SCH (08:43)
[2023-02-07] MEDS: Polyethylene Glycol 3350 17 GM Packet PO SCH (08:43)
[2023-02-07] MEDS: Trospium 20 MG TAB PO SCH (08:43)
== END 2023-02-07 11:15 | DRG 330 ==
LOC: ERS 23:43 → ERHOLD 01-22 03:27 → SURG B 01-22 12:09 → SURG A 01-22 18:16 → IMCU/EMU 01-27 18:37 → SURG B 01-28 19:52 → SURG A 01-29 14:31
PROVIDERS: ADMIT Family Medicine; ATTEND Family Medicine
PROC: 0D9N80Z Drainage of Sigmoid Colon with Drainage Device, Via Natural or Artificial Opening Endoscopic (ICD-10-PCS; 2023-01-22)
PROC: 0D9670Z Drainage of Stomach with Drainage Device, Via Natural or Artificial Opening (ICD-10-PCS; 2023-01-22)
PROC: 0DBN0ZZ Excision of Sigmoid Colon, Open Approach (ICD-10-PCS; principal; 2023-01-27)
PROC: 0D1E0Z4 Bypass Large Intestine to Cutaneous, Open Approach (ICD-10-PCS; 2023-01-27)
DX: K56.2 Volvulus (principal); K55.9 Vascular disorder of intestine, unspecified; R78.81 Bacteremia; K91.89 Other postprocedural complications and disorders of digestive system; K56.7 Ileus, unspecified; E78.5 Hyperlipidemia, unspecified; R77.8 Other specified abnormalities of plasma proteins; R74.8 Abnormal levels of other serum enzymes; F03.90 Unspecified dementia, unspecified severity, without behavioral disturbance, psychotic disturbance, mood disturbance, and anxiety; R74.01 Elevation of levels of liver transaminase levels; E87.6 Hypokalemia; N40.0 Benign prostatic hyperplasia without lower urinary tract symptoms; E83.39 Other disorders of phosphorus metabolism; E83.42 Hypomagnesemia; B96.20 Unspecified Escherichia coli [E. coli] as the cause of diseases classified elsewhere; I50.9 Heart failure, unspecified; I11.0 Hypertensive heart disease with heart failure; Z90.49 Acquired absence of other specified parts of digestive tract; Z90.89 Acquired absence of other organs; Z98.49 Cataract extraction status, unspecified eye; Z78.1 Physical restraint status; Z88.5 Allergy status to narcotic agent; Z91.010 Allergy to peanuts; Z88.8 Allergy status to other drugs, medicaments and biological substances; Z91.018 Allergy to other foods; Z79.899 Other long term (current) drug therapy; Z79.82 Long term (current) use of aspirin
CPT/HCPCS: 36415; 36416; 51701; 71045; 74018; 74177; 74250; 76705; 80048; 80053; 80074; 80076; 81001; 81003; 81015; 82553; 83516; 83540; 83550; 83605; 83690; 83735; 83880; 84100; 84484; 85025; 85610; 85730; 86015; 86140; 86850; 86900; 86901; 87040; 87076; 87077; 87086; 87149; 87186; 88307; 93005; 93306; 96374; 97139; C1776; J0360; J0692; J1100; J1650; J1940; J2272; J2405; J2543; J2704; J2710; J3010; J3475; J3480; J3490; J7050; J7120; Q9963; Q9967; S0028